=== PATIENT | female | born 1970 | race Caucasian/White ===

== ENCOUNTER 2017-02-20 10:33 | Day surgery (SDC) | payer OTHER ==
[2013-06-23 19:23] VITALS: BP 132/76
[~2017-02-20 10:33] MED LIST: Kenalog-40 IM ONE; Lactated Ringers 1,000 ML IV ONE; Sensorcaine 0.25% 10 ML IJ ONE
[2017-02-20] MEDS ORDERED: DIPRIVAN 200 MG/20 ML IV ONE (11:00)
--- NOTE | 2017-02-20 17:19 | XRAY ---
12 seconds fluoroscopy time in surgery for right side L2-5 MBB.
--- NOTE | 2017-02-22 02:38 | XRAY ---
Indication: Right L2-L5 MBB. Intraoperative fluoroscopy was provided for 12 seconds. Single digital spot image submitted for interpretation demonstrates 4 posterior spinal needles with the tips projected over the expected course of the right L2-L5 nerve roots. Correlate with intraoperative findings/report.
== END 2017-02-20 12:55 | disposition home or self-care (01) ==
LOC: SDC-PAIN 10:33
PROVIDERS: ATTEND Pain Medicine Interventional Pain Medicine
DX: M54.16 Radiculopathy, lumbar region (principal); M48.06 Spinal stenosis, lumbar region; M54.5 Low back pain; M47.816 Spondylosis without myelopathy or radiculopathy, lumbar region
CPT/HCPCS: 64493; 64494; 64495; 72020; 77003; J2704; J3301

== ENCOUNTER 2017-07-09 04:28 | Observation (INO) | payer OTHER ==
[2017-07-09] MEDS ORDERED: GI COCKTAIL 45 ML (Maalox/Lidocaine) PO ONE (04:55)
[2017-07-09] MEDS ORDERED: Sodium Chloride 0.9% 1000 ML 1,000 ML IV STA (04:56)
[2017-07-09] MEDS ORDERED: Phenergan 25 MG INJ IV ONE (04:56)
[2017-07-09] MEDS ORDERED: Hydromorphone 1 mg/ml Ampule IV ONE ×2 (04:56→07:17)
--- NOTE | 2017-07-09 04:59 | ERPHSYRPT ---
- History of Present Illness Time Seen by Provider: 07/09/17 04:49 Historian: patient Exam Limitations: no limitations Patient Subjective Stated Complaint: Pt sts vomiting x 8 since 0130 after waking up with feeling of burning from her stomach up into her throat. Reports history of GERD. Takes Zantac for this. Took "a couple" Zantac at time of wake up. Reports no diarrhea. Reports no recent sick contacts, everyone in the house at the same food and no one else is sick. Triage Nursing Assessment: Pt alert, oriented, answers all questions appropriately. Skin pink, warm, dry. Resps non-labored. Pt ambulatory from wheelchair to bed, steady gait noted. Pt writhing in bed holding abd. Physician History: FOR ABOUT THE PAST 4.5 HOURS PT HAS HAD VOMITING X8 WITHOUT BLOOD, DIFFUSE ABDOMINAL PAIN/BURNING AND DIAPHORESIS. LAST BM WAS THIS AM & WNL. PT DENIES CHEST PAIN, SHORTNESS OF AIR, FEVER. Allergies/Adverse Reactions: Latex, Natural Rubber Allergy (Intermediate, Verified 07/09/17 04:41) Hives sulfamethoxazole [From Bactrim] Allergy (Mild, Verified 07/09/17 04:41) Hives trimethoprim [From Bactrim] Allergy (Mild, Verified 07/09/17 04:41) Hives tramadol Allergy (Verified 07/09/17 04:41) Hives Home Medications: Omeprazole [Prilosec] 40 mg PO DAILY 09/11/14 [History] Ranitidine HCl [Zantac] 150 mg PO DAILY PRN PRN 12/23/15 [History] Escitalopram Oxalate 10 mg [Lexapro 10 MG] 10 mg PO HS 04/25/16 [History] Hydrocodone Bit/Acetaminophen [[place] 7.5-325 Tablet] 1 each PO BIDPRN PRN [History] Baclofen 20 mg PO TID 03/12/17 [History] Diclofenac Sodium 50 mg [Voltaren 50 mg] 50 mg PO TID 03/12/17 [History] Hx Tetanus, Diphtheria Vaccination/Date Given: Yes (2012) Hx Influenza Vaccination/Date Given: No Hx Pneumococcal Vaccination/Date Given: No Immunizations Up to Date: Yes - Review of Systems Constitutional: No Fever Respiratory: No Dyspnea Cardiac: No Chest Pain Abdominal/Gastrointestinal: Abdominal Pain, Vomiting, No Diarrhea Endocrine: Excessive Sweating All Other Systems: Reviewed and Negative - Past Medical History Pertinent Past Medical History: Yes Neurological History: No Pertinent History ENT History: No Pertinent History Cardiac History: No Pertinent History Respiratory History: No Pertinent History Endocrine Medical History: No Pertinent History Musculoskeletal History: Degenerative Disk Disease, Osteoarthritis GI Medical History: Colitis History: No Pertinent History Psycho-Social History: No Pertinent History Female Reproductive Disorders: No Pertinent History Other Medical History: HYSTERECTOMY 2004. HX OF EPIDURAL LOW BACK (? PER PT S1 ) 09/2015 HAD RELIEF FOR 10 MONTHS. WENT BACK TO PAIN MANAGEMENT FOR ANOTHER BUT WAS TOLD NEEDED TO DO COURSE OF THERAPY BEFORE INSURANCE WOULD APPROVE. HAS HAD THERAPY IN THE PAST INCLUDING GENERAL CONDITIONING, CORE STRENGTHENING, AND ELECTRICAL STIMULATION. HAS NOT CONTINUED EXERCISES. - Past Surgical History Past Surgical History: Yes Neuro Surgical History: No Pertinent History Cardiac: No Pertinent History Respiratory: No Pertinent History Gastrointestinal: No Pertinent History Genitourinary: No Pertinent History Musculoskeletal: No Pertinent History Female Surgical History: Hysterectomy, Tubal Ligation - Social History Smoking Status: Current every day smoker How long have you smoked: 15 Exposure to second hand smoke: No Drug Use: none Patient Lives Alone: No - Female History Hx Now: No - Nursing Vital Signs Nursing Vital Signs: Initial Vital Signs Temperature 97.8 F 07/09/17 04:30 Pulse Rate 69 07/09/17 04:30 Respiratory Rate 16 07/09/17 04:30 Blood Pressure 109/72 07/09/17 04:30 O2 Sat by Pulse Oximetry 100 07/09/17 04:30 Pain Scale Pain Intensity 10 - Physical Exam General Appearance: alert Eye Exam: PERRL/EOMI Ears, Nose, Throat Exam: TMs normal, pharynx normal, moist mucous membranes Neck Exam: normal inspection Respiratory Exam: lungs clear Cardiovascular Exam: normal heart sounds Gastrointestinal/Abdomen Exam: soft, normal bowel sounds, tenderness (MILD EPIGASTRIC TENDERNESS) Back Exam: normal range of motion Extremity Exam: normal inspection, No pedal edema Neurologic Exam: alert, cooperative Skin Exam: warm, dry SpO2 Interpretation: normal SpO2: 100 Oxygen Delivery: Room Air - Course Nursing assessment & vital signs reviewed: Yes - CT Exams Abdomen/Pelvis CT Interpretation: Tele-radiologist Report (CHOLELITHIASIS WITH DISTENDED GALLBLADDER AND MINIMAL STRANDY FLUID BETWEEN THE LIVER AND GALLBLADDER NECK RAISING THE POSSIBILITY OF CHOLECYSTITIS.) Ordered Tests: Active Orders 24 hr Category Date Time Status Clean Catch Urine Specimen STAT Care 07/09/17 04:56 Active IV Insertion STAT Care 07/09/17 04:56 Active ABDOMEN AND PELVIS W/0 CONTRAS [CT] Stat Exams 07/09/17 04:56 Taken AMYLASE Stat Lab 07/09/17 05:06 Completed CBC W DIFF Stat Lab 07/09/17 05:06 Completed CMP Stat Lab 07/09/17 05:06 Completed HCG QUALITATIVE,SERUM Stat Lab 07/09/17 05:06 Completed LIPASE Stat Lab 07/09/17 05:06 Completed UA W/RFX UR CULTURE Stat Lab 07/09/17 04:56 Ordered Urine Triage Profile Stat Lab 07/09/17 04:56 Ordered Medication Summary Discontinued Medications Generic Name Dose Route Start Last Admin Trade Name Freq PRN Reason Stop Dose Admin Al Hydrox/Mg Hydrox/Simethicone Confirm 07/09/17 05:01 Maalox Es 30 Ml Unit Dose Administered 07/09/17 05:02 Dose 30 ml .ROUTE .STK-MED ONE Hydromorphone HCl 1 mg 07/09/17 04:56 07/09/17 05:04 Hydromorphone 1 Mg/Ml Ampule IV 07/09/17 04:57 1 mg STAT ONE Administration Hydromorphone HCl Confirm 07/09/17 05:01 Hydromorphone 1 Mg/Ml Ampule Administered 07/09/17 05:02 Dose 1 mg .ROUTE .STK-MED ONE Sodium Chloride 1,000 mls @ 999 mls/hr 07/09/17 04:56 07/09/17 05:04 Sodium Chloride 0.9% 1000 Ml IV 07/09/17 05:56 999 mls/hr .Q1H1M STA Administration Sodium Chloride Confirm 07/09/17 05:01 Sodium Chloride 0.9% 1000 Ml Administered 07/09/17 05:02 Dose 1,000 mls @ ud .ROUTE .STK-MED ONE Lidocaine HCl Confirm 07/09/17 05:01 Xylocaine Hcl Viscous * Administered 07/09/17 05:02 Dose 15 ml .ROUTE .STK-MED ONE Magnesium Hydroxide 45 ml 07/09/17 04:55 07/09/17 05:13 Gi Cocktail 45 Ml (Maalox/Lidocaine) PO 07/09/17 04:56 45 ml STAT ONE Administration Promethazine HCl 12.5 mg 07/09/17 04:56 07/09/17 05:04 Phenergan 25 Mg Inj IV 07/09/17 04:57 12.5 mg STAT ONE Administration Promethazine HCl Confirm 07/09/17 05:00 Phenergan 25 Mg Inj Administered 07/09/17 05:01 Dose 25 mg .ROUTE .STK-MED ONE Lab/Rad Data: Laboratory Result Diagrams 07/09/17 05:06 07/09/17 05:06 Laboratory Results 07/09/17 07/09/17 07/09/17 Range/Units 05:06 05:06 05:06 WBC 14.7 H (4.0-10.5) K/mm3 RBC 4.99 (4.1-5.4) M/mm3 Hgb 14.5 (12.0-16.0) gm/dl Hct 43.7 (35-47) % MCV 87.6 (78-100) fl MCH 29.1 (26-32) pg MCHC 33.2 (32-36) g/dl RDW 13.5 (11.5-14.0) % Plt Count 339 (150-450) K/mm3 MPV 10.3 H (6-9.5) fl Gran % 69.4 H (36.0-66.0) % Lymphocytes % 23.1 L (24.0-44.0) % Monocytes % 6.0 (0.0-12.0) % Eosinophils % 1.3 (0.00-5.0) % Basophils % 0.2 (0.0-0.4) % Basophils # 0.03 (0-0.4) Sodium 142 (136-145) mEq/L Potassium 3.3 L (3.5-5.1) mEq/L Chloride 105 (98-107) mEq/L Carbon Dioxide 25.3 (21-32) mEq/L Anion Gap 14.5 (5-15) MEQ/L BUN 16 (9-20) mg/dL Creatinine 0.96 (0.55-1.30) mg/dl Estimated GFR > 60 ML/MIN Glucose 183 H (70-110) MG/DL Calcium 9.3 (8.5-10.1) mg/dL Total Bilirubin 0.30 (0.2-1.0) mg/dL AST 10 L (15-37) U/L ALT 16 (12-78) U/L Alkaline Phosphatase 106 (46-116) U/L Serum Total Protein 8.1 (6.4-8.2) gm/dL Albumin 4.0 (3.4-5.0) g/dL Amylase 58 (25-115) U/L Lipase 150 (73-393) U/L Serum , Qual NEGATIVE (Negative) - Progress Discussed with : Марина (WILL CONSULT - 0712), Damon (OBS - 0714) - Departure Time of Disposition: 07:15 Departure Disposition: Observation Clinical Impression: CHOLELITHIASIS, ABDOMINAL PAIN, ARTHRITIS Condition: Stable Critical Care Time: No Referrals: SHALONDA DUMONT, P[employer] TEACHER [Primary Care Provider] -
[2017-07-09] MEDS ORDERED: Phenergan 25 MG INJ ONE (05:00)
[2017-07-09] MEDS ORDERED: MAALOX ES 30 ML UNIT DOSE ONE (05:01)
[2017-07-09] MEDS ORDERED: XYLOCAINE HCl Viscous ONE (05:01)
[2017-07-09] MEDS ORDERED: Sodium Chloride 0.9% 1000 ML 1,000 ML ONE (05:01)
[2017-07-09] MEDS ORDERED: Hydromorphone 1 mg/ml Ampule ONE ×2 (05:01→07:38)
[2017-07-09 05:09] LABS: BASOPHIL % 0.2 % (0.0-0.4); Eosinophil % 1.3 % (0.00-5.0); Granulocytes % 69.4 % (36.0-66.0); Lymphocytes % 23.1 % (24.0-44.0); Mean Cell Volume 87.6 fl (78-100); Mean Corpuscular Hemoglobin 29.1 pg (26-32); Mean Platelet Volume 10.3 fl (6-9.5); Platelet Count 339 K/mm3 (150-450); Red Blood Count 4.99 M/mm3 (4.1-5.4); Red Cell Distribution Width 13.5 % (11.5-14.0); White Blood Count 14.7 K/mm3 (4.0-10.5)
[2017-07-09 05:28] LABS: ALKALINE PHOSPHATASE 106 U/L (46-116); ANION GAP 14.5 MEQ/L (5-15); BLOOD UREA NITROGEN 16 mg/dL (9-20); CHLORIDE 105 mEq/L (98-107); Carbon Dioxide 25.3 mEq/L (21-32); Glucose 183 MG/DL (70-110); LIPASE 150 U/L (73-393); Potassium 3.3 mEq/L (3.5-5.1); SGOT/AST 10 U/L (15-37); SGPT/ALT 16 U/L (12-78); SODIUM 142 mEq/L (136-145); Total Protein 8.1 gm/dL (6.4-8.2)
[2017-07-09] MEDS ORDERED: Zosyn 3.375GM/100 Ml D5W 3.375 GM/100 ML IVPB IV STA (07:16)
[2017-07-09] MEDS ORDERED: POTASSIUM CHLORIDE 20 mEq IN WATER 100ML 20 MEQ/100 ML BAG IV ONE ×2 (07:16→08:55)
[2017-07-09] MEDS ORDERED: Zofran 4 MG/2 ML VIAL IV ONE ×2 (07:17→18:14)
[2017-07-09] MEDS ORDERED: Zofran 4 MG/2 ML VIAL ONE (07:38)
[2017-07-09] MEDS ORDERED: Zosyn 3.375GM/100 Ml D5W 3.375 GM/100 ML IVPB IV ONE (07:38)
[2017-07-09 08:17] LABS: Bilirubin NEGATIVE (NEGATIVE); Blood TRACE NON-HEM Ery/ul (0-5); COMPLETE URINE MICROSCOPIC? YES; Collection Type CATH; Glucose NEGATIVE (NEGATIVE); Leukocyte Esterase NEGATIVE (NEGATIVE)
[2017-07-09 08:19] LABS: Epithelial Cells RARE /HPF (FEW); Mucus SLIGHT /HPF (NEGATIVE); WBC 0-2 /HPF (0-5)
[2017-07-09 08:20] LABS: ADD URINE CULTURE? NO (NO); Bacteria RARE /HPF (NEGATIVE)
[2017-07-09] MEDS ORDERED: POTASSIUM CHLORIDE 20 mEq IN WATER 100ML 100 ML IV ONE (08:37)
[2017-07-09] MEDS ORDERED: Zofran 4 MG/2 ML VIAL IV PRN (08:55)
[2017-07-09] MEDS ORDERED: Phenergan 25 MG INJ IV PRN (08:55)
[2017-07-09] MEDS ORDERED: Sodium Chloride 0.9% 1000 ML 1,000 ML IV SCH (08:55)
--- NOTE | 2017-07-09 09:03 | XRAY ---
Indication: Abdomen pain. Gastric reflux. Multiple contiguous axial images obtained through the abdomen and pelvis without contrast as ordered. Comparison: April 03, 2013. Lung bases demonstrates mild bibasilar dependent atelectasis with stable right base calcified granuloma. No infiltrate or effusion. Heart is not enlarged. No hiatal hernia. Noncontrasted bowel loops appear nonobstructed. Normal appendectomy. No free fluid/air. Gallbladder appears distended with now a few intraluminal cholesterol gallstones and minimal stranding possibly cholecystitis. No abnormal biliary distention. Again previous hysterectomy. Remaining liver, pancreas, spleen, adrenal glands, kidneys, ureters, bladder, and aorta appear unremarkable for noncontrast exam. Osseous structures intact again with mild degenerative changes. Stable left L5 spondylolysis with mild grade 1 spondylolisthesis. Impression: 1. Abnormal gallbladder distention with cholesterol gallstones and minimal stranding. Rule out cholecystitis. Gallbladder sonogram may yield further information. 2. Stable L5 spondylolysis with grade 1 spondylolisthesis. Comment: Preliminary interpretation was made by [facility]. No discrepancy. CT DI 22.63
[2017-07-09 09:14] LABS: INR 0.99 (0.8-3.0)
[2017-07-09 09:16] LABS: PTT 29.8 SECONDS (25.3-37.0)
--- NOTE | 2017-07-09 09:56 | XRAY ---
Indication: Pain. Two-dimensional right upper quadrant abdominal sonogram performed. Comparison: April 03, 2013. Gallbladder moderately distended with now several intraluminal gallstones in the dependent portion, largest 2 cm. Borderline gallbladder wall thickening measuring 2.7 mm. No pericholecystic fluid. Common bile duct measures 4.9 mm. No intrahepatic biliary distention. Remaining visualized portions of the liver, pancreas, and right kidney appear sonographically unremarkable. Right kidney measures 12.12 cm. No ascites. Impression: Distended gallbladder with gallstones and borderline wall thickening. Rule out chronic cholecystitis.
[2017-07-09] MEDS: DILAUDID 2 MG INJECTION IV PRN ×2 (10:27→14:36)
[2017-07-09] MEDS: PROTONIX 40 MG IV IV SCH (10:33)
[2017-07-09] MEDS: Zosyn 3.375GM/100 Ml D5W 3.375 GM/100 ML IVPB IV SCH ×2 (12:52→17:20)
[2017-07-09] MEDS ORDERED: Lactated Ringers 1,000 ML IV ONE (13:24)
[2017-07-09] MEDS ORDERED: Sensorcaine 0.25% 10 ML ONE (13:24)
[2017-07-09] MEDS: Lactated Ringers 1,000 ML IV SCH (13:58)
--- NOTE | 2017-07-09 16:13 | PCM.HP ---
History of Present Illness - Chief Complaint Chief Complaint: abd pain, cholelithiasis History of Present Illness: is a 47 year old female who started having abd pain and vomiting at 1 :30 am. SHe had epigastric and RUQ burning pain, >10/10, radiating to the back. Vomited multiple times. No fever. Last meal 6 pm yesterday. Found to have cholecystitis in the ER on CT scan. Admitted for surgical consult. On IV zosyn (WBC elevated to 14,700). - Review of Systems Ears, Nose, & Throat: Nose Congestion Respiratory: Cough, Short Of Breath Cardiac: No Chest Pain Abdominal/Gastrointestinal: Abdominal Pain, Nausea, Vomiting Musculoskeletal: Back Pain (chronic) Psychological: Depression (treated with SSRI, pt denies current sx), No Anxiety , No Suicidal Ideations Medications & Allergies Home Medications: Home Medication List Ranitidine HCl [Zantac] 150 mg PO DAILY PRN PRN 12/23/15 [History Confirmed ] Escitalopram Oxalate 10 mg [Lexapro 10 MG] 10 mg PO HS 04/25/16 [History Confirmed 07/09/17] Baclofen 20 mg PO TID 03/12/17 [History Confirmed 07/09/17] Allergies/Adverse Reactions: Allergies Allergy/AdvReac Type Severity Reaction Status Date / Time Latex, Natural Rubber Allergy Intermediate Hives Verified 07/09/17 04:41 sulfamethoxazole Allergy Mild Hives Verified 07/09/17 04:41 [From Bactrim] trimethoprim [From Bactrim] Allergy Mild Hives Verified 07/09/17 04:41 tramadol Allergy Hives Verified 07/09/17 04:41 - Past Medical History Past Medical History: Yes Neurological History: No Pertinent History ENT History: No Pertinent History Cardiac History: No Pertinent History Respiratory History: No Pertinent History Endocrine Medical History: No Pertinent History Musculoskelatal History: Degenerative Disk Disease, Osteoarthritis GI Medical History: Colitis History: No Pertinent History Pyscho-Social History: No Pertinent History Reproductive Disorders: No Pertinent History Comment: HYSTERECTOMY 2004. HX OF EPIDURAL LOW BACK (? PER PT S1) 09/2015 HAD RELIEF FOR 10 MONTHS. WENT BACK TO PAIN MANAGEMENT FOR ANOTHER BUT WAS TOLD NEEDED TO DO COURSE OF THERAPY BEFORE INSURANCE WOULD APPROVE. HAS HAD THERAPY IN THE PAST INCLUDING GENERAL CONDITIONING, CORE STRENGTHENING, AND ELECTRICAL STIMULATION. HAS NOT CONTINUED EXERCISES. - Female History Hx Last Menstrual Period: hyst Are you now?: No - Past Surgical History Past Surgical History: Yes Neuro Surgical History: No Pertinent History Cardiac History: No Pertinent History Respiratory Surgery: No Pertinent History GI Surgical History: No Pertinent History Genitourinary Surgical Hx: No Pertinent History Musculskeletal Surgical Hx: No Pertinent History Female Surgical History: Hysterectomy, Tubal Ligation - Social History Smoking Status: Current every day smoker How long have you smoked: 15 Exposure to second hand smoke: No Alcohol: None Drug Use: none - Physical Exam Vital Signs: Vital Signs - 24 hr Temp Pulse Resp BP Pulse Ox 07/09/17 15:49 98.7 F 78 18 123/71 95 07/09/17 11:50 99.1 F 72 18 118/73 94 L 07/09/17 11:18 99.1 F 72 18 118/73 94 L 07/09/17 09:28 98.3 F 69 20 120/73 97 07/09/17 08:26 98.3 F 68 16 152/76 98 07/09/17 07:47 90 18 120/75 96 07/09/17 07:15 100 07/09/17 06:40 86 16 117/72 98 07/09/17 05:44 88 16 128/76 98 07/09/17 04:30 97.8 F 69 16 109/72 100 General Appearance: no apparent distress, alert Neurologic Exam: oriented x 3, cooperative Eye Exam: eyes nml inspection Ears, Nose, Throat Exam: moist mucous membranes Neck Exam: normal inspection, non-tender, No lymphadenopathy Respiratory Exam: normal breath sounds, lungs clear, No crackles/rales, No rhonchi, No wheezing Cardiovascular Exam: regular rate/rhythm, normal heart sounds, No murmur Gastrointestinal/Abdomen Exam: soft, tenderness (epigastrum, RUQ), guarding, rebound, other (hypoactive), No distention, No mass Back Exam: normal inspection Results - Labs Lab/Micro Results: Lab Results-Last 24 Hours 07/09/17 Range/Units 15:01 Potassium 4.3 (3.5-5.1) mEq/L Assessment/Plan (1) Cholecystitis Current Visit: Yes Status: Acute Assessment & Plan: Admitted for surgical consult, thank you. NPO currently. Will restart her meds postoperatively. Code(s): K81.9 - CHOLECYSTITIS, UNSPECIFIED (2) Depression Current Visit: Yes Status: Acute Qualifiers: Depression Type: unspecified Qualified Code(s): F32.9 - Major depressive disorder, single episode, unspecified Assessment & Plan: stable on SSRI. Code(s): F32.9 - MAJOR DEPRESSIVE DISORDER, SINGLE EPISODE, UNSPECIFIED
[2017-07-09] MEDS ORDERED: Quelicin Fliptop 200 MG/10 ML IV ONE (18:14)
[2017-07-09] MEDS ORDERED: Zemuron 100 MG/10 ML IV ONE (18:14)
[2017-07-09] MEDS ORDERED: DIPRIVAN 200 MG/20 ML IV ONE (18:14)
[2017-07-09] MEDS ORDERED: Decadron 4 MG INJ IV ONE (18:14)
[2017-07-09] MEDS ORDERED: BRIDION 200MG/2ML IV ONE (18:14)
[2017-07-09] MEDS ORDERED: TORAdol 30 mg Injection IV ONE (18:14)
[2017-07-09] MEDS ORDERED: SUBLIMAZE 250 MCG/5 ML IV ONE (18:14)
[2017-07-09] MEDS ORDERED: Versed 2 MG/2 ML Injection IV ONE (18:14)
[2017-07-09] MEDS ORDERED: DEMEROL 50 MG ONE (19:03)
[2017-07-09] MEDS ORDERED: MORPHINE SULFATE 4 MG INJ IV PRN (19:56)
[2017-07-09] MEDS ORDERED: Lactated Ringers 1,000 ML IV SCH (20:00)
[2017-07-09] MEDS ORDERED: Nicoderm CQ 21 MG TOP SCH (22:15)
[2017-07-09] MEDS: NORCO 5/325 MG PO PRN (22:40)
[2017-07-10] MEDS: Zosyn 3.375GM/100 Ml D5W 3.375 GM/100 ML IVPB IV SCH ×3 (00:03→12:23)
[2017-07-10] MEDS: NORCO 5/325 MG PO PRN ×4 (04:23→17:57)
[2017-07-10] MEDS: Lactated Ringers 1,000 ML IV SCH (04:24)
[2017-07-10 05:53] LABS: BASOPHIL % 0.1 % (0.0-0.4); Granulocytes % 84.9 % (36.0-66.0); Mean Cell Volume 87.2 fl (78-100); Mean Corpuscular Hemoglobin 29.1 pg (26-32); Platelet Count 262 K/mm3 (150-450); Red Blood Count 4.53 M/mm3 (4.1-5.4); Red Cell Distribution Width 13.3 % (11.5-14.0); White Blood Count 16.9 K/mm3 (4.0-10.5)
[2017-07-10 06:10] LABS: ALBUMIN 3.1 g/dL (3.4-5.0); ALKALINE PHOSPHATASE 91 U/L (46-116); ANION GAP 11.4 MEQ/L (5-15); BLOOD UREA NITROGEN 11 mg/dL (9-20); CHLORIDE 105 mEq/L (98-107); Carbon Dioxide 26.2 mEq/L (21-32); Glucose 147 MG/DL (70-110); LIPASE 92 U/L (73-393); Potassium 4.2 mEq/L (3.5-5.1); SGOT/AST 39 U/L (15-37); SGPT/ALT 58 U/L (12-78); SODIUM 138 mEq/L (136-145); Total Protein 7.1 gm/dL (6.4-8.2)
--- NOTE | 2017-07-10 07:46 | OP ---
SURGERY DATE/TIME: 07/09/2017 1737 PREOPERATIVE DIAGNOSIS: Symptomatic cholelithiasis, acute exacerbation chronic cholecystitis. POSTOPERATIVE DIAGNOSIS: Symptomatic cholelithiasis, acute exacerbation chronic cholecystitis extensive severe cholecystitis. PROCEDURE: Laparoscopic near total cholecystectomy, difficult. SURGEON: Dr. Mateo Perales. ANESTHESIA: General. ESTIMATED BLOOD LOSS: Minimal. INDICATIONS: As noted above. Risks and benefits explained in detail but not limited to and consent obtained. DESCRIPTION OF PROCEDURE AND FINDINGS: The patient was taken to the OR. General anesthesia was induced. Abdomen prepped and draped in the usual sterile fashion. After official time out and no disagreement with planned procedure, a transverse incision made at the supraumbilical area. Fascia grasped and pulled upward. Veress needle inserted and tested with saline. Pneumoperitoneum accomplished insufflating opening pressure of 0-15. An 11 mm bladeless port and camera were inserted without difficulty. Two - 5 mm right upper quadrant ports and a 5 mm epigastric port was placed initially. The gallbladder extensive omental adhesions was quite distended and required making a secondary stab wound in the right upper quadrant. Veress needle and 50 cc syringe aspirating a good 40 cc of hydrops and bile allowing the gallbladder to be grasped. It required extensive laparoscopic lysis of adhesions, extensive omental adhesions dissecting from posterior-lateral to anterior fashion. It had severe cholecystitis. Dissection carried posterior-lateral to anterior fashion. The patient had large stone wedged down in the infundibulum all the way down to the edge of the common bile duct. Because of this the stone was able to be mobilized back up into the gallbladder. The stone had been wedged down there. It was quite patulous in this area with extensive inflammatory reaction. With slow and careful dissection layer by layer the infundibular area was slowly and carefully well skeletonized until the critical view was obtained both anteriorly and posteriorly. Given this extensive inflammatory reaction it was felt that the gallbladder should be taken right at the infundibulum as any further dissection would immediately risk narrowing the common duct given the extensive concrete inflammatory reaction. It was felt that even opening the patient would not create any better situation and it was felt it would be baseless and to go ahead and do this near total cholecystectomy taking this gallbladder right at the actual infundibula adjacent to the common duct area. This critical view was obtained both anterior and posteriorly. A 12 port was then placed in the epigastrium. The EndoGIA stapler carefully placed across there and fired smoothly with good seal noted on the staple line with no sign of any bile leakage. The main cystic artery advanced isolated directly on the gallbladder wall clipped x3 and divided. The gallbladder is slowly and carefully dissected free from its concrete inflammatory reaction this took quite some time, all this extra dissection and changing ports out added extra 45 minutes on the procedure time. The gallbladder is slowly and carefully dissected free from its dense almost concrete attachments to the liver bed staying directly on the gallbladder wall clipping additional oozing side branches off the cystic artery cystic veins as necessary directly on the gallbladder wall. Just prior to releasing the final attachments to the anterior edge of the liver, the liver bed re-inspected. Staple line intact on the infundibular stump. No signs of any leakage. Clips were noted in place on cystic artery stump. No signs of any active bleeding. The gallbladder was released from its final attachments to the anterior edge of the liver the liver and placed in a Pleatman sac and pulled out the umbilical port decompressing it of bile and retrieving the multiple moderately large stones with the Momence clamp allowing the gallbladder in Pleatman sac to be pulled free and passed off. The port was replaced. Copious amount of irrigation accomplished lateral to the liver and subhepatic space irrigating until clear. The liver bed re-inspected. Clips noted to be in place in cystic artery stumps. Staple line intact on the infundibular stump. Given the extensive inflammatory reaction it was felt that temporary YOLY drain would be beneficial and placed in the subhepatic space out through a lateral port. The incision secured with PDS suture and placed to bulb suction. At this point the epigastrium umbilical 10, 11 and 12 ports were closed with puncture closure device with #1 Vicryl under direct vision of the camera. Pneumoperitoneum decompressed. The wound was irrigated out. Skin incision closed with 4-0 Vicryl. 0.25% Marcaine local injected along the skin incision fascial defect. The patient tolerated the procedure well. There were no immediate complications. There was no family available to discuss the findings with out in the waiting area. If they have any questions I can be paged later. He was transferred to the recovery room in stable condition. There were no immediate complications. It was a very difficult dissection given the severe cholecystitis requiring a near total cholecystectomy.
--- NOTE | 2017-07-10 07:58 | CONS ---
CONSULT DATE: 07/09/2017 HISTORY: The patient is a 47 year-old white female who since about 0130 hours this morning had some upper abdominal right upper quadrant pain associated with some nausea and vomiting. She failed to improve. She presented to the emergency department and eventually had a CT scan show cholelithiasis on preliminary report, borderline wall thickening and question whether she had cholecystitis. She is not improving. It was felt that she needed admission. Otherwise no free air or other issues noted. Her international normalized ratio was normal. HCG was negative. White blood cell count was 14.7, hemoglobin 14.5, PLT 239,000. Drug screen showed some THC otherwise no other narcotics. Lipase was normal. Liver function test unremarkable. PAST MEDICAL HISTORY: As mentioned above. She has degenerative disc disease, osteoarthritis. She had some colitis in the past. Chronic low back pain and she has been seeing pain management. PAST SURGICAL HISTORY: Hysterectomy in the past. She denied any prior abdominal surgeries. She did have an epidural injection in her back in the past according to the patient. HOME MEDICATIONS: Omeprazole, ranitidine, citalopram, hydrocodone, Baclofen, diclofenac for some back problems. ALLERGIES: LATEX, SULFA, BACTRIM, TRAMADOL. FAMILY HISTORY: Negative in regards to this specific problem. SOCIAL HISTORY: No alcohol abuse. She is an everyday smoker. REVIEW OF SYSTEMS: Twelve systems reviewed per admission assessment pertinent for as noted above. PHYSICAL EXAMINATION: Afebrile, vital signs stable. GENERAL: No acute distress. HEENT: Sclera nonicteric. NECK: No JVD. CHEST: Equal excursion, nonlabored breathing. CVS: Regular rate and rhythm. ABDOMEN: Soft, mild tenderness epigastrium area and right upper quadrant. No rebound. EXTREMITIES: No significant edema. NEURO: Alert, moving extremities symmetrically. No gross motor deficits noted. IMPRESSION: Symptomatic cholelithiasis acute exacerbation of acute cholecystitis. I feel the patient will benefit from cholecystectomy. Risks and benefits explained in detail but not limited to bleeding or infection, risk of trocar injury or hernia, small risk bowel, bladder or blood vessel injury, small risk of bile leak, bile duct injury, retained stone or sludge possibly requiring further procedure either open or ERCP, general risk of anesthesia, deep venous thrombosis, pulmonary embolism, pneumonia, perioperative risk of aches, pain, bloating, constipation and/or loose stools possibly chronic in nature, possibility that the procedure may not improve her symptoms, possibility of needing open procedure, possibly need other work up or studies. She understands and agrees with the planned procedure will proceed with laparoscopic cholecystectomy when OR time available.
--- NOTE | 2017-07-10 08:11 | PCM.NOTE ---
Date and Time: 07/10/17807 Subjective Assessment: Had laparoscopic cholecystectomy last night. Feeling "sore" this morning but pain is better. - Review of Systems Constitutional: No Fever Abdominal/Gastrointestinal: Abdominal Pain Objective Exam General Appearance: no apparent distress, alert Neurologic Exam: oriented x 3, cooperative Skin Exam: normal color, warm, dry Respiratory Exam: normal breath sounds, lungs clear, No crackles/rales, No rhonchi, No wheezing Cardiovascular Exam: regular rate/rhythm, normal heart sounds, No murmur Gastrointestinal/Abdomen Exam: soft, tenderness, other (YOLY drain present with serosanguinous drainage. hypoactive bowel sounds) OBJECTIVE DATA Vital Signs: Vital Signs - 24 hr Temp Pulse Resp BP Pulse Ox 07/10/17 07:29 95 07/10/17 07:20 98.3 F 69 18 109/63 94 L 07/10/17 04:00 97.4 F 64 14 112/66 96 07/09/17 23:55 97.4 F 72 16 111/71 96 07/09/17 22:55 67 116/72 95 07/09/17 21:55 98.3 F 75 14 116/71 96 07/09/17 20:55 99.0 F 77 16 115/74 93 L 07/09/17 20:27 94 L 07/09/17 20:25 98.7 F 71 15 118/76 96 07/09/17 19:55 98.8 F 76 16 116/69 93 L 07/09/17 19:40 98.3 F 77 16 116/72 92 L 07/09/17 15:49 98.7 F 78 18 123/71 95 07/09/17 11:50 99.1 F 72 18 118/73 94 L 07/09/17 11:18 99.1 F 72 18 118/73 94 L 07/09/17 09:28 98.3 F 69 20 120/73 97 07/09/17 08:26 98.3 F 68 16 152/76 98 Oxygen-Last 24 hours O2 Percentage 2 Liters = 28% O2 Percentage 2 Liters = 28% Oxygen Flowrate (L/min)-RT 2 Oxygen Flowrate (L/min)-RT 2 Pain Assessment - Last Documented Pain Intensity 0 Pain Scale Used 0-10 Pain Scale Intake and Output: Intake & Output 10/1507/08/17 07/09/17 07/10/17 11:59 11:59 11:59 11:59 Intake Total 400 Output Total 1200 Balance -800 Weight 83.915 kg 84.504 kg Lab Results: Lab Results-Last 24 Hours 07/09/17 07/10/17 07/10/17 Range/Units 15:01 05:08 05:08 WBC 16.9 H (4.0-10.5) K/mm3 RBC 4.53 (4.1-5.4) M/mm3 Hgb 13.2 (12.0-16.0) gm/dl Hct 39.5 (35-47) % MCV 87.2 (78-100) fl MCH 29.1 (26-32) pg MCHC 33.4 (32-36) g/dl RDW 13.3 (11.5-14.0) % Plt Count 262 (150-450) K/mm3 MPV 11.0 H (6-9.5) fl Gran % 84.9 H (36.0-66.0) % Lymphocytes % 11.0 L (24.0-44.0) % Monocytes % 4.0 (0.0-12.0) % Eosinophils % 0.0 (0.00-5.0) % Basophils % 0.1 (0.0-0.4) % Basophils # 0.02 (0-0.4) Sodium 138 (136-145) mEq/L Potassium 4.3 4.2 (3.5-5.1) mEq/L Chloride 105 (98-107) mEq/L Carbon Dioxide 26.2 (21-32) mEq/L Anion Gap 11.4 (5-15) MEQ/L BUN 11 (9-20) mg/dL Creatinine 0.76 (0.55-1.30) mg/dl Estimated GFR > 60 ML/MIN Glucose 147 H (70-110) MG/DL Calcium 8.9 (8.5-10.1) mg/dL Total Bilirubin 0.60 (0.2-1.0) mg/dL AST 39 H (15-37) U/L ALT 58 (12-78) U/L Alkaline Phosphatase 91 (46-116) U/L Serum Total Protein 7.1 (6.4-8.2) gm/dL Albumin 3.1 L (3.4-5.0) g/dL Lipase 92 (73-393) U/L Assessment/Plan (1) S/P cholecystectomy Current Visit: Yes Status: Acute Assessment & Plan: POD #1. Has YOLY drain in place. Code(s): Z90.49 - ACQUIRED ABSENCE OF OTHER SPECIFIED PARTS OF DIGESTIVE TRACT (2) Leukocytosis Current Visit: Yes Status: Acute Assessment & Plan: Increased WBC from yesterday. Betsey will stay overnight on IV antibiotics and earliest discharge would be tomorrow, if cleared by surgery. Code(s): D72.829 - ELEVATED WHITE BLOOD CELL COUNT, UNSPECIFIED (3) Depression Current Visit: Yes Status: Acute Qualifiers: Depression Type: unspecified Qualified Code(s): F32.9 - Major depressive disorder, single episode, unspecified Code(s): F32.9 - MAJOR DEPRESSIVE DISORDER, SINGLE EPISODE, UNSPECIFIED
[2017-07-10] MEDS: PROTONIX 40 MG IV IV SCH (09:08)
[2017-07-10 16:10] VITALS: BP 109/65; PULSE 72; O2SAT 94
--- NOTE | 2017-07-10 16:14 | PCM.DS ---
Discharge Summary Date of Admission: 07/09/17 08:53 Admitting Physician: LIBBY LEE Primary Care Provider: SHALONDA DUMONT Allergies Allergies Latex, Natural Rubber Allergy (Intermediate, Verified 07/09/17 04:41) Hives sulfamethoxazole [From Bactrim] Allergy (Mild, Verified 07/09/17 04:41) Hives trimethoprim [From Bactrim] Allergy (Mild, Verified 07/09/17 04:41) Hives tramadol Allergy (Verified 07/09/17 04:41) Hives morphine Adverse Reaction (Verified 07/09/17 20:29) Itching Hospital Summary - Hospital Course Hospital Course: Pt admitted with abd pain and vomiting, found to have cholelithiasis and cholecystits and had surgery yesterday, thank you. Has YOLY drain but tolerating po well and pain is controlled with norco. - Vitals & Intake/Output Vital Signs: Vital Signs Temperature 98.4 F 07/10/17 16:00 Pulse Rate 72 07/10/17 16:00 Respiratory Rate 16 07/10/17 16:00 Blood Pressure 109/65 07/10/17 16:00 O2 Sat by Pulse Oximetry 94 L 07/10/17 16:00 Oxygen-Last Documented O2 Percentage 2 Liters = 28% Intake & Output: Intake & Output 07/08/17 07/09/17 07/10/17 07/11/17 11:59 11:59 11:59 11:59 Intake Total 400 Output Total 1200 900 Balance -800 -900 Weight 83.915 kg 84.504 kg - Lab Result Diagrams: 07/10/17 05:08 07/10/17 05:08 Lab Results-Last 24 Hrs: Lab Results-Last 24 Hours 07/10/17 07/10/17 Range/Units 05:08 05:08 WBC 16.9 H (4.0-10.5) K/mm3 RBC 4.53 (4.1-5.4) M/mm3 Hgb 13.2 (12.0-16.0) gm/dl Hct 39.5 (35-47) % MCV 87.2 (78-100) fl MCH 29.1 (26-32) pg MCHC 33.4 (32-36) g/dl RDW 13.3 (11.5-14.0) % Plt Count 262 (150-450) K/mm3 MPV 11.0 H (6-9.5) fl Gran % 84.9 H (36.0-66.0) % Lymphocytes % 11.0 L (24.0-44.0) % Monocytes % 4.0 (0.0-12.0) % Eosinophils % 0.0 (0.00-5.0) % Basophils % 0.1 (0.0-0.4) % Basophils # 0.02 (0-0.4) Sodium 138 (136-145) mEq/L Potassium 4.2 (3.5-5.1) mEq/L Chloride 105 (98-107) mEq/L Carbon Dioxide 26.2 (21-32) mEq/L Anion Gap 11.4 (5-15) MEQ/L BUN 11 (9-20) mg/dL Creatinine 0.76 (0.55-1.30) mg/dl Estimated GFR > 60 ML/MIN Glucose 147 H (70-110) MG/DL Calcium 8.9 (8.5-10.1) mg/dL Total Bilirubin 0.60 (0.2-1.0) mg/dL AST 39 H (15-37) U/L ALT 58 (12-78) U/L Alkaline Phosphatase 91 (46-116) U/L Serum Total Protein 7.1 (6.4-8.2) gm/dL Albumin 3.1 L (3.4-5.0) g/dL Lipase 92 (73-393) U/L - Procedures and Test Procedures and Tests throughout Hospitalization: Therapy Orders & Screens 07/09/17 09:43 Smoking Cessation Education ONCE Comment: Diagnosis: abd pain, cholelithiasis Smoking Status: Current every day smoker How long have you smoked: 15 Have you smoked in the past 12 months: Yes Approximately how many cigarettes per day: 1ppd Do you dip or chew tobacco: No If,Former Smoker,when did you quit: 09/0307/09/17 20:25 Oxygen NASAL CANNULA 2 lpm Comment: Diagnosis: abd pain, cholelithiasis Discharge Exam General Appearance: no apparent distress, alert Neurologic Exam: oriented x 3, cooperative Skin Exam: normal color, warm, dry Respiratory Exam: normal breath sounds, lungs clear, No crackles/rales, No rhonchi, No wheezing Cardiovascular Exam: regular rate/rhythm, normal heart sounds, No murmur Gastrointestinal/Abdomen Exam: soft, normal bowel sounds, other (surgical wounds c/d/i. YOLY drain present with serosanguinous drainage.) Final Diagnosis/Problem List - Final Discharge Diagnosis/Problem (1) S/P cholecystectomy Current Visit: Yes Status: Acute Assessment & Plan: Doing great. Home today. (2) Leukocytosis Current Visit: Yes Status: Acute Assessment & Plan: Likely due to vomiting then surgery, surgeon aware. (3) Depression Current Visit: Yes Status: Chronic Assessment & Plan: stable - Discharge Disposition: Home, Self-Care Condition: Stable Prescriptions: Continue Ranitidine HCl [Zantac] 150 mg PO DAILY PRN PRN PRN Reason: Stomach Upset Escitalopram Oxalate 10 mg [Lexapro 10 MG] 10 mg PO HS Baclofen 20 mg PO TID Follow up with: HALIE LINDER [COURTESY STAFF] - 07/22/17 8:00 am ([facility]) SHALONDA DUMONT NP [Primary Care Provider] -
== END 2017-07-10 18:15 | disposition home or self-care (01) ==
LOC: ED 04:28 → MED SURG 08:53
PROVIDERS: ADMIT Family Medicine; ATTEND Family Medicine
PROC: 0FT44ZZ Resection of Gallbladder, Percutaneous Endoscopic Approach (ICD-10-PCS; principal; 2017-07-09)
DX: K81.9 Cholecystitis, unspecified (principal); F32.9 Major depressive disorder, single episode, unspecified
CPT/HCPCS: 00790; 36000; 36415; 74176; 76705; 80053; 80307; 81000; 82150; 83690; 84132; 84703; 85025; 85610; 85730; 87040; 88304; 94760; 96360; 96365; 96367; 96374; 96375; 99285; G0378; J0330; J1100; J1170; J1885; J2175; J2250; J2405; J2543; J2550; J2704; J3010; J3480; P9612; A9270-GY

== ENCOUNTER 2018-06-25 13:18 | Emergency (ER) | payer OTHER ==
--- NOTE | 2018-06-25 14:24 | ERPHSYRPT ---
- History of Present Illness Time Seen by Provider: 06/25/18 14:15 Source: patient Exam Limitations: no limitations Patient Subjective Stated Complaint: pt states she has 4 herniated disc in neck and for about a week now she has had neck pain and stiffness, she has tried motrin,heat, bio freeze Triage Nursing Assessment: pt alert, walked in, resp easy, gaurding neck Physician History: The patient is a 48-year-old female complaining of left sided neck muscle and left sided back muscle spasm and pain for about one week. She had this problem chronically for several years but it had resolved last year. She thinks she may have slept wrong or moves wrong causing it to flareup again. She has taken baclofen before with good result. She has tried Tylenol and ibuprofen without relief. She was at work today but was sent home. Her past medical history is significant for herniated disks in her cervical spine. Timing/Duration: week(s) (1), gradual onset Severity: moderate Modifying Factors: Improves With: movement Associated Symptoms: denies symptoms, No headaches Allergies/Adverse Reactions: Latex, Natural Rubber Allergy (Intermediate, Verified 07/09/17 04:41) Hives sulfamethoxazole [From Bactrim] Allergy (Mild, Verified 07/09/17 04:41) Hives trimethoprim [From Bactrim] Allergy (Mild, Verified 07/09/17 04:41) Hives codeine Allergy (Verified 06/25/18 13:31) tramadol Allergy (Verified 07/09/17 04:41) Hives morphine Adverse Reaction (Verified 07/09/17 20:29) Itching Hx Tetanus, Diphtheria Vaccination/Date Given: Yes (2012) Hx Influenza Vaccination/Date Given: No Hx Pneumococcal Vaccination/Date Given: No Immunizations Up to Date: Yes - Review of Systems Constitutional: No Fever, No Chills Eyes: No Symptoms Ears, Nose, & Throat: No Symptoms Respiratory: No Cough, No Dyspnea Cardiac: No Chest Pain, No Edema, No Syncope Abdominal/Gastrointestinal: No Abdominal Pain, No Nausea, No Vomiting, No Diarrhea Genitourinary Symptoms: No Dysuria Musculoskeletal: Back Pain, Neck Pain, Myalgias Skin: No Rash Neurological: No Dizziness, No Focal Weakness, No Sensory Changes Psychological: No Symptoms Endocrine: No Symptoms Hematologic/Lymphatic: No Symptoms Immunological/Allergic: No Symptoms All Other Systems: Reviewed and Negative - Past Medical History Pertinent Past Medical History: Yes Neurological History: No Pertinent History ENT History: No Pertinent History Cardiac History: No Pertinent History Respiratory History: No Pertinent History Endocrine Medical History: No Pertinent History Musculoskeletal History: Degenerative Disk Disease, Osteoarthritis GI Medical History: Colitis History: No Pertinent History Psycho-Social History: No Pertinent History Female Reproductive Disorders: No Pertinent History Other Medical History: HYSTERECTOMY 2004. HX OF EPIDURAL LOW BACK (? PER PT S1 ) 09/2015 HAD RELIEF FOR 10 MONTHS. WENT BACK TO PAIN MANAGEMENT FOR ANOTHER BUT WAS TOLD NEEDED TO DO COURSE OF THERAPY BEFORE INSURANCE WOULD APPROVE. HAS HAD THERAPY IN THE PAST INCLUDING GENERAL CONDITIONING, CORE STRENGTHENING, AND ELECTRICAL STIMULATION. HAS NOT CONTINUED EXERCISES. - Past Surgical History Past Surgical History: Yes Neuro Surgical History: No Pertinent History Cardiac: No Pertinent History Respiratory: No Pertinent History Gastrointestinal: No Pertinent History Genitourinary: No Pertinent History Musculoskeletal: No Pertinent History Female Surgical History: Hysterectomy, Tubal Ligation - Social History Smoking Status: Current every day smoker How long have you smoked: 15 Exposure to second hand smoke: Yes Drug Use: none Patient Lives Alone: No - Female History Hx Last Menstrual Period: hyster Hx Now: No - Nursing Vital Signs Nursing Vital Signs: Initial Vital Signs Temperature 97.2 F 06/25/18 13:24 Pulse Rate 90 06/25/18 13:24 Respiratory Rate 16 06/25/18 13:24 Blood Pressure 135/110 06/25/18 13:24 O2 Sat by Pulse Oximetry 96 06/25/18 13:24 Pain Scale Pain Intensity 8 - Physical Exam General Appearance: no apparent distress, alert Eye Exam: PERRL/EOMI, eyes nml inspection Ears, Nose, Throat Exam: normal ENT inspection, TMs normal, pharynx normal, moist mucous membranes Neck Exam: supple, limited range of motion, other (spasm of muscles to left neck ) Respiratory Exam: normal breath sounds, lungs clear, No respiratory distress Cardiovascular Exam: regular rate/rhythm, murmur Gastrointestinal/Abdomen Exam: soft, normal bowel sounds, No tenderness, No mass Pelvic Exam: not done Rectal Exam: not done Back Exam: muscle spasm (left trapezius) Extremity Exam: normal inspection, normal range of motion, pelvis stable Neurologic Exam: alert, oriented x 3, cooperative, normal mood/affect, nml cerebellar function, nml station & gait, sensation nml, No motor deficits Skin Exam: normal color, warm, dry, No rash Lymphatic Exam: No adenopathy SpO2 Interpretation: normal SpO2: 96 Oxygen Delivery: Room Air - Radiology Exams C-Spine X-ray Interpretation: Reviewed by me, Teleradiologist Report (per Dr Bright), Negative, No Fracture, No Subluxation Ordered Tests: Active Orders 24 hr Category Date Time Status CERVICAL SPINE (2 OR 3 VIEW) Stat Exams 06/25/18 14:29 Completed Medication Summary Discontinued Medications Generic Name Dose Route Start Last Admin Trade Name Parviz PRN Reason Stop Dose Admin Ketorolac Tromethamine 60 mg 06/25/18 14:28 06/25/18 14:50 Toradol 30 Mg Injection IM 06/25/18 14:29 60 mg STAT ONE Administration Ketorolac Tromethamine Confirm 06/25/18 14:37 Toradol 30 Mg Injection Administered 06/25/18 14:38 Dose 60 mg .ROUTE .STK-MED ONE - Progress Progress: improved Counseled pt/family regarding: diagnosis, rad results - Departure Time of Disposition: 15:19 Departure Disposition: Home Clinical Impression: Neck muscle spasm Condition: Stable Critical Care Time: No Referrals: SHALONDA DUMONT NP [Primary Care Provider] - Additional Instructions: You have a spasm of the muscles of the left side of your neck and left shoulder. You were given Toradol 60 mg by IM in the ER. Take baclofen 10 mg every 8 hours as needed for pain. Take Tylenol and ibuprofen as needed. Follow -up with your primary medical doctor as needed. Prescriptions: Baclofen 10 mg PO TID #12 tablet
[2018-06-25] MEDS ORDERED: TORAdol 30 mg Injection IM ONE (14:28)
[2018-06-25] MEDS ORDERED: TORAdol 30 mg Injection ONE (14:37)
--- NOTE | 2018-06-25 15:06 | XRAY ---
Indication: Muscle spasms one week. Comparison: CT cervical spine September 25, 2013. 3 views of the cervical spine again demonstrates C5-C6 degenerative endplate spurring and lesser degree C3-C4 level. Also stable cervical lordotic straightening, positional versus paraspinal spasm. No new/acute bony, articular, or soft tissue abnormalities.
[2018-06-25 15:35] VITALS: BP 100/80; PULSE 68; O2SAT 97
== END 2018-06-25 15:35 | disposition home or self-care (01) ==
LOC: ED 13:18
DX: M62.830 Muscle spasm of back (principal); M54.2 Cervicalgia; M62.838 Other muscle spasm; M54.9 Dorsalgia, unspecified
CPT/HCPCS: 72040; 96372; 99284; J1885

== ENCOUNTER 2018-11-03 12:15 | Emergency (ER) | payer OTHER ==
--- NOTE | 2018-11-03 13:30 | ERPHSYRPT ---
- History of Present Illness Time Seen by Provider: 11/03/18 13:25 Source: patient Exam Limitations: no limitations Patient Subjective Stated Complaint: pt here for a fall today, she states seh slipped on a towel and fell landing on bottom, she co pain to buttock, mid back and rgith side of neck that radiates to shoulder Triage Nursing Assessment: pt alert, resp easy, skin w/d/p, no edema, no bruising or abrasions noted Physician History: The patient is a 48-year-old female complaining of falling early this morning while trying to take her dog outside. The patient fell onto her buttocks on the floor and then fell back striking her head on the floor. She complains of pain in her buttocks and tailbone area, right shoulder and neck pain, and left mid back pain. He was not knocked out. She went to work but was told to be seen and evaluated. She denies numbness or tingling. Occurred: this morning Reason for Fall: slipped, fell from standing pos Injuries/Pain Location: head, upper extremity, back, pelvis Loss of Consciousness: no loss of consciousness Quality: aching Severity of Pain-Max: moderate Severity of Pain-Current: moderate Modifying Factors: Improves With: nothing Associated Symptoms (Fall): back pain Allergies/Adverse Reactions: Latex, Natural Rubber Allergy (Intermediate, Verified 11/03/18 12:25) Hives sulfamethoxazole [From Bactrim] Allergy (Mild, Verified 11/03/18 12:25) Hives trimethoprim [From Bactrim] Allergy (Mild, Verified 11/03/18 12:25) Hives codeine Allergy (Verified 11/03/18 12:25) tramadol Allergy (Verified 11/03/18 12:25) Hives morphine Adverse Reaction (Verified 11/03/18 12:25) Itching Hx Tetanus, Diphtheria Vaccination/Date Given: Yes (2012) Hx Influenza Vaccination/Date Given: Yes Hx Pneumococcal Vaccination/Date Given: No Immunizations Up to Date: Yes - Review of Systems Constitutional: No Fever, No Chills Eyes: No Symptoms Ears, Nose, & Throat: No Symptoms Respiratory: No Cough, No Dyspnea Cardiac: No Chest Pain, No Edema, No Syncope Abdominal/Gastrointestinal: No Abdominal Pain, No Nausea, No Vomiting, No Diarrhea Genitourinary Symptoms: No Dysuria Musculoskeletal: Back Pain, Fall, Injury, Myalgias Skin: No Rash Neurological: No Dizziness, No Focal Weakness, No Sensory Changes Psychological: No Symptoms Endocrine: No Symptoms Hematologic/Lymphatic: No Symptoms Immunological/Allergic: No Symptoms All Other Systems: Reviewed and Negative - Past Medical History Pertinent Past Medical History: Yes Neurological History: No Pertinent History ENT History: No Pertinent History Cardiac History: No Pertinent History Respiratory History: No Pertinent History Endocrine Medical History: No Pertinent History Musculoskeletal History: Degenerative Disk Disease, Osteoarthritis GI Medical History: Colitis History: No Pertinent History Psycho-Social History: No Pertinent History Female Reproductive Disorders: No Pertinent History Other Medical History: HYSTERECTOMY 2004. HX OF EPIDURAL LOW BACK (? PER PT S1 ) 09/2015 HAD RELIEF FOR 10 MONTHS. WENT BACK TO PAIN MANAGEMENT FOR ANOTHER BUT WAS TOLD NEEDED TO DO COURSE OF THERAPY BEFORE INSURANCE WOULD APPROVE. HAS HAD THERAPY IN THE PAST INCLUDING GENERAL CONDITIONING, CORE STRENGTHENING, AND ELECTRICAL STIMULATION. HAS NOT CONTINUED EXERCISES. - Past Surgical History Past Surgical History: Yes Neuro Surgical History: No Pertinent History Cardiac: No Pertinent History Respiratory: No Pertinent History Gastrointestinal: Cholecystectomy Genitourinary: No Pertinent History Musculoskeletal: No Pertinent History Female Surgical History: Hysterectomy, Tubal Ligation - Social History Smoking Status: Current every day smoker How long have you smoked: 15 Exposure to second hand smoke: Yes Drug Use: marijuana Patient Lives Alone: No - Female History Hx Last Menstrual Period: hyster Hx Now: No - Nursing Vital Signs Nursing Vital Signs: Initial Vital Signs Temperature 97 F 11/03/18 12:26 Pulse Rate 94 H 11/03/18 12:26 Respiratory Rate 18 11/03/18 12:26 Blood Pressure 142/92 11/03/18 12:26 O2 Sat by Pulse Oximetry 99 11/03/18 12:26 Pain Scale Pain Intensity 4 - [place] Coma Score Best Eye Response ([place]): (4) open spontaneously Best Verbal Response ([place]): (5) oriented Best Motor Response ([place]): (6) obeys commands [place] Total: 15 - Physical Exam General Appearance: no apparent distress, alert Head Injury: no evidence of injury Eye Exam: PERRL/EOMI ENT Exam: airway nml Neck Exam: tenderness (right lateral inferior muscle spasm and tenderness) Respiratory/Chest Exam: normal breath sounds, No chest tenderness, No respiratory distress Cardiovascular Exam: normal heart sounds, regular rate/rhythm Gastrointestinal Exam: soft, No tenderness, No distention, No guarding, No ecchymosis Rectal Exam: not done Back Exam: muscle spasm (Examination the back reveals muscle spasm and tenderness of the right superior trapezius muscle. There is also spasm and tenderness of the left thoracic paraspinous muscles.), other (tenderness to palpation of coccyx) Extremity Exam: normal inspection, normal range of motion, pelvis stable, No deformities Neurologic Exam: alert, oriented x 3, cooperative, sensation nml, No motor deficits Skin Exam: normal color, warm, dry SpO2 Interpretation: normal SpO2: 99 O2 Delivery: Room Air - Radiology Exams Other X-ray Interpretation: Reviewed by me, Teleradiologist Report (per Dr Bright), Negative, No Fracture (sacrum and coccyx) Ordered Tests: Active Orders 24 hr Category Date Time Status SACRUM AND COCCYX Stat Exams 11/03/18 13:53 Completed Medication Summary Discontinued Medications Generic Name Dose Route Start Last Admin Trade Name Freq PRN Reason Stop Dose Admin Ketorolac Tromethamine 60 mg 11/03/18 13:32 11/03/18 13:42 Toradol 30 Mg Injection IM 11/03/18 13:33 60 mg STAT ONE Administration Ketorolac Tromethamine Confirm 11/03/18 13:38 Toradol 30 Mg Injection Administered 11/03/18 13:39 Dose 60 mg .ROUTE .STK-MED ONE - Progress Progress: improved Counseled pt/family regarding: rad results - Departure Time of Disposition: 14:42 Departure Disposition: Home Clinical Impression: Muscle spasm, Coccyx contusion Condition: Stable Critical Care Time: No Referrals: SHALONDA DUMONT NP [Primary Care Provider] - Additional Instructions: You had a fall this morning that caused muscle spasms in your right shoulder and left side of your mid back. You also have a contusion on your tailbone. Take Flexeril 10 mg every 8 hours as needed. You were given Toradol 60 mg by IM in the ER. You were given tomorrow off from work. Follow-up with your primary medical doctor as needed. Prescriptions: Cyclobenzaprine HCl 10 mg PO Q8H PRN PRN #10 tablet PRN Reason: Pain
[2018-11-03] MEDS ORDERED: TORAdol 30 mg Injection IM ONE (13:32)
[2018-11-03] MEDS ORDERED: TORAdol 30 mg Injection ONE (13:38)
--- NOTE | 2018-11-03 14:09 | XRAY ---
Indication: Pain following fall. 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 No other bony, articular, or soft tissue abnormalities.
[2018-11-03 14:41] VITALS: BP 104/67; PULSE 78
[2018-11-03 14:47] VITALS: O2SAT 99
== END 2018-11-03 14:58 | disposition home or self-care (01) ==
LOC: ED 12:15
DX: M62.838 Other muscle spasm (principal); S30.0XXA Contusion of lower back and pelvis, initial encounter; W01.198A Fall on same level from slipping, tripping and stumbling with subsequent striking against other object, initial encounter; Y93.K1 Activity, walking an animal; Y92.9 Unspecified place or not applicable; M19.90 Unspecified osteoarthritis, unspecified site
CPT/HCPCS: 72220; 96372; 99284; J1885

== ENCOUNTER 2019-04-07 19:58 | Emergency (ER) | payer OTHER ==
[2019-04-07] MEDS ORDERED: solu-MEDROL 125 MG IM ONE (20:39)
[2019-04-07] MEDS ORDERED: solu-MEDROL 125 MG ONE (20:43)
--- NOTE | 2019-04-07 20:48 | ERPHSYRPT ---
- History of Present Illness Time Seen by Provider: 04/07/19 20:33 Source: patient Exam Limitations: no limitations Patient Subjective Stated Complaint: pt states she has problems with l4 and l5 and has been having a flare upw ith her back pain since yesterday. Triage Nursing Assessment: pt alert and oriented, answers questions approp. pt ambulatory with slow gait. Physician History: 48-year-old white female with history of chronic low back pain arrives with complaint of worsening of her low back pain since yesterday she states is located in the mid low lumbar region she states it radiates down her right leg. Patient has a chronic history of this she had an MRI of the back which was performed in February of this year he was remarkable for multilevel degenerative disc disease greater at L5-S1, there was negative disc herniation or spinal canal stenosis, there was Multivite level vertebral hemangiomas Schmorl's nodes. Patient is not having any loss of sensation she is able to move all extremities. Past medical history includes asthma, bronchitis, arthritis, Past surgical history includes hysterectomy and tubal ligation Inspect his queried the patient received Winfield 10/325 #28 on March 05, 2019 Patient states she is on Baclofen. Patient states that she was told she needed to see a pain internal control consultant. Timing/Duration: other (chronic, worse since yesterday) Severity: moderate Modifying Factors: Improves With: movement Associated Symptoms: No nausea, No vomiting, No abdominal pain, No shortness of breath, No heartburn, No diaphoresis, No cough, No chills, No chest pain, No fever, No headaches, No loss of appetite, No malaise, No rash, No syncope, No seizure, No weakness Allergies/Adverse Reactions: Latex, Natural Rubber Allergy (Intermediate, Verified 04/07/19 20:13) Hives sulfamethoxazole [From Bactrim] Allergy (Mild, Verified 04/07/19 20:13) Hives trimethoprim [From Bactrim] Allergy (Mild, Verified 04/07/19 20:13) Hives codeine Allergy (Verified 04/07/19 20:13) tramadol Allergy (Verified 04/07/19 20:13) Hives morphine Adverse Reaction (Verified 04/07/19 20:13) Itching Home Medications: Baclofen 10 mg [Lioresal 10 mg] 10 mg PO BID 04/07/19 [History] Omeprazole 20 mg PO DAILY 04/07/19 [History] Hx Tetanus, Diphtheria Vaccination/Date Given: Yes Hx Influenza Vaccination/Date Given: Yes Hx Pneumococcal Vaccination/Date Given: No Immunizations Up to Date: Yes - Review of Systems Constitutional: No Fever, No Chills Eyes: No Symptoms Ears, Nose, & Throat: No Symptoms Respiratory: No Cough, No Dyspnea Cardiac: No Chest Pain, No Edema, No Syncope Abdominal/Gastrointestinal: No Abdominal Pain, No Nausea, No Vomiting, No Diarrhea Genitourinary Symptoms: No Dysuria Musculoskeletal: Back Pain Skin: No Rash Neurological: No Dizziness, No Focal Weakness, No Sensory Changes Psychological: No Symptoms Endocrine: No Symptoms All Other Systems: Reviewed and Negative - Past Medical History Pertinent Past Medical History: Yes Neurological History: No Pertinent History ENT History: No Pertinent History Cardiac History: No Pertinent History Respiratory History: Asthma, Bronchitis Endocrine Medical History: No Pertinent History Musculoskeletal History: Arthritis GI Medical History: Colitis History: No Pertinent History Psycho-Social History: No Pertinent History Female Reproductive Disorders: No Pertinent History Other Medical History: HYSTERECTOMY 2004. HX OF EPIDURAL LOW BACK (? PER PT S1 ) 09/2015 HAD RELIEF FOR 10 MONTHS. APPROVE. HAS HAD THERAPY IN THE PAST INCLUDING GENERAL CONDITIONING, CORE STRENGTHENING, AND ELECTRICAL STIMULATION. HAS NOT CONTINUED EXERCISES. - Past Surgical History Past Surgical History: Yes Neuro Surgical History: No Pertinent History Cardiac: No Pertinent History Respiratory: No Pertinent History Gastrointestinal: Cholecystectomy Genitourinary: No Pertinent History Musculoskeletal: No Pertinent History Female Surgical History: Hysterectomy, Tubal Ligation - Social History Smoking Status: Current every day smoker How long have you smoked: 15 Exposure to second hand smoke: Yes Drug Use: marijuana Patient Lives Alone: No - Female History Hx Last Menstrual Period: hyster 2006 Hx Now: No - Nursing Vital Signs Nursing Vital Signs: Initial Vital Signs Temperature 97.8 F 04/07/19 20:04 Pulse Rate 92 H 04/07/19 20:04 Respiratory Rate 98 H 04/07/19 20:04 Blood Pressure 154/99 04/07/19 20:04 O2 Sat by Pulse Oximetry 98 04/07/19 20:04 Pain Scale Pain Intensity [Lower Back] 9 Pain Intensity 9 - Physical Exam General Appearance: mild distress, alert Eye Exam: PERRL/EOMI, eyes nml inspection Ears, Nose, Throat Exam: normal ENT inspection, TMs normal, pharynx normal, moist mucous membranes Neck Exam: normal inspection, non-tender, supple, full range of motion Respiratory Exam: normal breath sounds, lungs clear, No respiratory distress Cardiovascular Exam: regular rate/rhythm, normal heart sounds, normal peripheral pulses, capillary refill <2 sec Gastrointestinal/Abdomen Exam: soft, normal bowel sounds, No tenderness, No mass Back Exam: other (back is tender with palpation midline low lumbar region. 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, normal mood/affect, nml cerebellar function, nml station & gait, sensation nml, No motor deficits Skin Exam: normal color, warm, dry, No rash SpO2 Interpretation: normal (98%) SpO2: 98 - Course Nursing assessment & vital signs reviewed: Yes Ordered Tests: Medication Summary Discontinued Medications Generic Name Dose Route Start Last Admin Trade Name Parviz PRN Reason Stop Dose Admin Methylprednisolone Sodium Succinate 125 mg 04/07/19 20:39 04/07/19 20:46 Solu-Medrol 125 Mg IM 04/07/19 20:40 125 mg STAT ONE Administration Methylprednisolone Sodium Succinate Confirm 04/07/19 20:43 Solu-Medrol 125 Mg Administered 04/07/19 20:44 Dose 125 mg .ROUTE .STK-MED ONE - Progress Progress: improved Progress Note: 04/07/19 20:45 48-year-old white female with history of degenerative disc disease with had a recent MRI which shows multilevel degenerative disc disease L4-S1 she has negative disc herniation or spinal canal stenosis. She does have multilevel vertebral hemangiomas Schmorl's nodes. Patient with increased back pain since yesterday no apparent injury. Patient is tender with palpation low lumbar region midline. She states she has pain radiating down her right leg she is not having urinary symptoms she is able to sit with her hips flexed to 90 and both legs extended she has range of motion to all extremities, she has no demonstratable neurologic deficits at this time. Patient has been seen by her family doctor has been told that she will need to see a pain internal control consultant she states she has had epidurals in the past with good improvement. Will go ahead and give patient Solu-Medrol 125 mg IM will write for tapering prednisone. Will write for Winfield 5/325 #10 one orally every 6 hours as needed for pain. As the pharmacies are closed will go ahead and give patient to with his take-home Will give patient work slip for tomorrow. Patient is advised to followup with her family - Departure Departure Disposition: Home Clinical Impression: Back pain Qualifiers: Back pain location: low back pain Chronicity: unspecified Back pain laterality : midline Sciatica presence: with sciatica Sciatica laterality: sciatica of right side Qualified Code(s): M54.41 - Lumbago with sciatica, right side Condition: Fair Critical Care Time: No Referrals: LUKE VARGHESE [employer] [Primary Care Provider] - Additional Instructions: Return home rest. Winfield and prednisone as prescribed. Followup with your family . Return for acute distress or for severe symptoms. Prescriptions: Hydrocodone/APAP 5-325 Tab^^^ [Winfield 5-325 Tablet^^^] 1 tab PO Q6HPRN PRN #10 tablet MDD 6 PRN Reason: back pain
[2019-04-07] MEDS ORDERED: NORCO 5/325 MG PO ONE (20:55)
[2019-04-07] MEDS ORDERED: NORCO 5/325 MG ONE (20:56)
[2019-04-07 21:07] VITALS: BP 137/83; PULSE 70; O2SAT 96
== END 2019-04-07 21:07 | disposition home or self-care (01) ==
LOC: ED 19:58
DX: M54.41 Lumbago with sciatica, right side (principal)
CPT/HCPCS: 96372; 99283; J2930; A9270-GY

== ENCOUNTER 2019-05-23 19:54 | Emergency (ER) | payer OTHER ==
[2019-05-23] MEDS ORDERED: Sodium Chloride 0.9% 1000 ML 1,000 ML IV STA ×2 (20:08→22:20)
[2019-05-23] MEDS ORDERED: Zofran 4 MG/2 ML VIAL IV ONE (20:08)
--- NOTE | 2019-05-23 20:08 | ERPHSYRPT ---
- History of Present Illness Time Seen by Provider: 05/23/19 20:04 Historian: patient, family Exam Limitations: no limitations Physician History: pt had sudden onset of chest pain sharp and increased with breathing no cough of fever - has hx of back spasms and though it might be like that but baclofen did not help - no hx CAD - no fever reported. no abd pain N or V. Timing/Duration: today Activities at Onset: none Quality: sharpness, stabbing Location: central, back Chest Pain Radiation: back Severity of Pain-Max: moderate Severity of Pain-Current: moderate Modifying Factors: Improves With: breathing Associated Symptoms: shortness of breath, hurts to breathe Prior Chest Pain/Cardiac Workup: no prior chest pain, no prior cardiac workup Nitro Today/Relief: 0.4 mg x 1, provided by ED, no relief Aspirin Treatment Today: 325 mg x 1, provided by ED Allergies/Adverse Reactions: Latex, Natural Rubber Allergy (Intermediate, Verified 04/07/19 20:13) Hives sulfamethoxazole [From Bactrim] Allergy (Mild, Verified 04/07/19 20:13) Hives trimethoprim [From Bactrim] Allergy (Mild, Verified 04/07/19 20:13) Hives codeine Allergy (Verified 04/07/19 20:13) tramadol Allergy (Verified 04/07/19 20:13) Hives morphine Adverse Reaction (Verified 04/07/19 20:13) Itching Home Medications: Baclofen 10 mg [Lioresal 10 mg] 10 mg PO BID 04/07/19 [History] Omeprazole 20 mg PO DAILY 04/07/19 [History] Hx Tetanus, Diphtheria Vaccination/Date Given: Yes Hx Influenza Vaccination/Date Given: Yes Hx Pneumococcal Vaccination/Date Given: No - Review of Systems Constitutional: No Fever, No Chills Eyes: No Symptoms Ears, Nose, & Throat: No Symptoms Respiratory: Dyspnea, No Cough, No Stridor, No Wheezing Cardiac: Chest Pain, No Edema, No Syncope Abdominal/Gastrointestinal: No Abdominal Pain, No Nausea, No Vomiting, No Diarrhea Genitourinary Symptoms: No Dysuria Musculoskeletal: No Back Pain, No Neck Pain Skin: No Rash Neurological: No Dizziness, No Focal Weakness, No Sensory Changes Psychological: No Symptoms Endocrine: No Symptoms All Other Systems: Reviewed and Negative - Past Medical History Pertinent Past Medical History: Yes Neurological History: No Pertinent History ENT History: No Pertinent History Cardiac History: No Pertinent History Respiratory History: Asthma, Bronchitis Endocrine Medical History: No Pertinent History Musculoskeletal History: Arthritis GI Medical History: Colitis History: No Pertinent History Psycho-Social History: No Pertinent History Female Reproductive Disorders: No Pertinent History Other Medical History: HYSTERECTOMY 2004. HX OF EPIDURAL LOW BACK (? PER PT S1 ) 09/2015 HAD RELIEF FOR 10 MONTHS. APPROVE. HAS HAD THERAPY IN THE PAST INCLUDING GENERAL CONDITIONING, CORE STRENGTHENING, AND ELECTRICAL STIMULATION. HAS NOT CONTINUED EXERCISES. - Past Surgical History Past Surgical History: Yes Neuro Surgical History: No Pertinent History Cardiac: No Pertinent History Respiratory: No Pertinent History Gastrointestinal: Cholecystectomy Genitourinary: No Pertinent History Musculoskeletal: No Pertinent History Female Surgical History: Hysterectomy, Tubal Ligation - Social History Smoking Status: Current every day smoker How long have you smoked: 15 Exposure to second hand smoke: Yes Drug Use: marijuana Patient Lives Alone: No - Nursing Vital Signs Nursing Vital Signs: Initial Vital Signs Pulse Rate 96 H 05/23/19 19:58 Respiratory Rate 20 05/23/19 19:58 Blood Pressure 160/126 05/23/19 19:58 O2 Sat by Pulse Oximetry 100 05/23/19 19:58 Pain Scale Pain Intensity 0 - Physical Exam General Appearance: no apparent distress, alert Eye Exam: PERRL/EOMI, eyes nml inspection Ears, Nose, Throat Exam: normal ENT inspection, moist mucous membranes Neck Exam: normal inspection, non-tender, supple, full range of motion Respiratory Exam: normal breath sounds, lungs clear, No respiratory distress Cardiovascular Exam: regular rate/rhythm, normal heart sounds Gastrointestinal/Abdomen Exam: soft, No tenderness, No mass Back Exam: normal inspection, No CVA tenderness, No vertebral tenderness Extremity Exam: normal inspection, normal range of motion Neurologic Exam: alert, oriented x 3, cooperative, normal mood/affect, sensation nml, No motor deficits Skin Exam: normal color, warm, dry - Course Nursing assessment & vital signs reviewed: Yes EKG Interpreted by Me: Sinus Tach, NORMAL AXIS, Non-specific ST Changes - Radiology Exams Chest X-ray Interpretation: Reviewed by me, Other (peribronchial thickening/infiltrate ) Ordered Tests: Active Orders 24 hr Category Date Time Status EKG-ER Only STAT Care 05/23/19 20:08 Active IV Insertion STAT Care 05/23/19 20:08 Active CHEST 1 VIEW (PORTABLE) Stat Exams 05/23/19 20:09 Taken AMYLASE Stat Lab 05/23/19 20:37 Completed CBC W DIFF Stat Lab 05/23/19 20:37 Completed CK-Creatinine Phosphokinase Routine Lab 05/23/19 23:15 Completed CMP Stat Lab 05/23/19 20:37 Completed D-DIMER QUANTITATION Stat Lab 05/23/19 20:37 Completed LIPASE Stat Lab 05/23/19 20:37 Completed Lactic Acid Stat Lab 05/23/19 20:30 Completed Lactic Acid Stat Lab 05/23/19 23:06 Completed TROPONIN Q3H Lab 05/23/19 20:37 Completed TROPONIN Q3H Lab 05/23/19 23:15 Completed TROPONIN Q3H Lab 05/24/19 02:15 Ordered TROPONIN Q3H Lab 05/24/19 05:15 Ordered TROPONIN Q3H Lab 05/24/19 08:15 Ordered UA W/RFX UR CULTURE Stat Lab 05/23/19 20:58 Completed Medication Summary Discontinued Medications Generic Name Dose Route Start Last Admin Trade Name Parviz PRN Reason Stop Dose Admin Sodium Chloride 1,000 mls @ 999 mls/hr 05/23/19 20:08 05/23/19 21:14 Sodium Chloride 0.9% 1000 Ml IV 05/23/19 21:08 Infused .Q1H1M STA Infusion Sodium Chloride Confirm 05/23/19 20:12 Sodium Chloride 0.9% 1000 Ml Administered 05/23/19 20:13 Dose 1,000 mls @ ud .ROUTE .STK-MED ONE Sodium Chloride 1,000 mls @ 999 mls/hr 05/23/19 22:20 05/23/19 23:25 Sodium Chloride 0.9% 1000 Ml IV 05/23/19 23:20 Infused .Q1H1M STA Infusion Ceftriaxone Sodium/Dextrose 1 g in 50 mls @ 100 mls/hr 05/23/19 22:22 22:59 Rocephin 1 Gm-D5w 50 Ml Bag IV 05/23/19 22:51 Infused STAT ONE Infusion Sodium Chloride Confirm 05/23/19 22:23 Sodium Chloride 0.9% 1000 Ml Administered 05/23/19 22:24 Dose 1,000 mls @ ud .ROUTE .STK-MED ONE Ceftriaxone Sodium/Dextrose Confirm 05/23/19 22:23 Rocephin 1 Gm-D5w 50 Ml Bag Administered 05/23/19 22:24 Dose 1 g in 50 mls @ ud IV .STK-MED ONE Lorazepam 1 mg 05/23/19 20:12 05/23/19 20:30 Ativan 1 Mg PO 05/23/19 20:13 1 mg STAT ONE Administration Lorazepam Confirm 05/23/19 20:22 Ativan 1 Mg Administered 05/23/19 20:23 Dose 1 mg .ROUTE .STK-MED ONE Nitroglycerin 0.4 mg 05/23/19 20:10 05/23/19 20:13 Nitrostat 0.4 Mg (Ed) SL 05/23/19 20:11 0.4 mg STAT ONE Administration Nitroglycerin Confirm 05/23/19 20:12 Nitrostat 0.4 Mg (Ed) Administered 05/23/19 20:13 Dose 0.4 mg SL .STK-MED ONE Ondansetron HCl 4 mg 05/23/19 20:08 05/23/19 20:13 Zofran 4 Mg/2 Ml Vial IV 05/23/19 20:09 4 mg STAT ONE Administration Ondansetron HCl Confirm 05/23/19 20:12 Zofran 4 Mg/2 Ml Vial Administered 05/23/19 20:13 Dose 4 mg .ROUTE .STK-MED ONE Tizanidine HCl 8 mg 05/23/19 20:11 05/23/19 20:30 Zanaflex 4 Mg PO 05/23/19 20:12 8 mg STAT STA Administration Lab/Rad Data: Laboratory Result Diagrams 05/23/19 20:37 05/23/19 20:37 Laboratory Results 05/23/19 05/23/19 05/23/19 Range/Units 23:15 23:06 20:58 WBC (4.0-10.5) K/mm3 RBC (4.1-5.4) M/mm3 Hgb (12.0-16.0) gm/dl Hct (35-47) % MCV (78-100) fl MCH (26-32) pg MCHC (32-36) g/dl RDW (11.5-14.0) % Plt Count (150-450) K/mm3 MPV (6-9.5) fl Gran % (36.0-66.0) % Eos # (Auto) (0-0.5) Absolute Lymphs (auto) (1.0-4.6) Absolute Monos (auto) (0.0-1.3) Lymphocytes % (24.0-44.0) % Monocytes % (0.0-12.0) % Eosinophils % (0.00-5.0) % Basophils % (0.0-0.4) % Absolute Granulocytes (1.4-6.9) Basophils # (0-0.4) D-Dimer (215-500) ng/mL Sodium (137-145) mmol/L Potassium (3.5-5.1) mmol/L Chloride (98-107) mmol/L Carbon Dioxide (22-30) mmol/L Anion Gap (5-15) MEQ/L BUN (7-17) mg/dL Creatinine (0.52-1.04) mg/dL Estimated GFR ML/MIN Glucose (74-106) mg/dL Lactic Acid 0.7 (0.4-2.0) Calcium (8.4-10.2) mg/dL Total Bilirubin (0.2-1.3) mg/dL AST (14-36) U/L ALT (0-35) U/L Alkaline Phosphatase (38-126) U/L Creatine Kinase 124 (30-135) U/L Troponin I < 0.012 (0.000-0.034) ng/mL Serum Total Protein (6.3-8.2) g/dL Albumin (3.5-5.0) g/dL Amylase (30-110) U/L Lipase (23-300) U/L Urine Color YELLOW (YELLOW) Urine Appearance CLEAR (CLEAR) Urine pH 7.0 (5-6) Ur Specific [place] 1.006 (1.005-1.025) Urine Protein NEGATIVE (Negative) Urine Ketones NEGATIVE (NEGATIVE) Urine Blood NEGATIVE (0-5) Arian/ul Urine Nitrite NEGATIVE (NEGATIVE) Urine Bilirubin NEGATIVE (NEGATIVE) Urine Urobilinogen NEGATIVE (0-1) mg/dL Ur Leukocyte Esterase TRACE (NEGATIVE) Urine WBC (Auto) 3-5 (0-5) /HPF Urine RBC (Auto) 0-2 (0-2) /HPF U Epithel Cells (Auto) RARE (FEW) /HPF Urine Bacteria (Auto) NONE (NEGATIVE) /HPF Urine Mucus (Auto) SLIGHT (NEGATIVE) /HPF Urine Culture Reflexed NO (NO) Urine Glucose NEGATIVE (NEGATIVE) mg/dL 05/23/19 05/23/19 05/23/19 Range/Units 20:37 20:37 20:37 WBC (4.0-10.5) K/mm3 RBC (4.1-5.4) M/mm3 Hgb (12.0-16.0) gm/dl Hct (35-47) % MCV (78-100) fl MCH (26-32) pg MCHC (32-36) g/dl RDW (11.5-14.0) % Plt Count (150-450) K/mm3 MPV (6-9.5) fl Gran % (36.0-66.0) % Eos # (Auto) (0-0.5) Absolute Lymphs (auto) (1.0-4.6) Absolute Monos (auto) (0.0-1.3) Lymphocytes % (24.0-44.0) % Monocytes % (0.0-12.0) % Eosinophils % (0.00-5.0) % Basophils % (0.0-0.4) % Absolute Granulocytes (1.4-6.9) Basophils # (0-0.4) D-Dimer 366 (215-500) ng/mL Sodium 141 (137-145) mmol/L Potassium 4.2 (3.5-5.1) mmol/L Chloride 108 H (98-107) mmol/L Carbon Dioxide 22 (22-30) mmol/L Anion Gap 15.1 H (5-15) MEQ/L BUN 16 (7-17) mg/dL Creatinine 0.75 (0.52-1.04) mg/dL Estimated GFR > 60.0 ML/MIN Glucose 104 (74-106) mg/dL Lactic Acid (0.4-2.0) Calcium 10.0 (8.4-10.2) mg/dL Total Bilirubin 0.80 (0.2-1.3) mg/dL AST 30 (14-36) U/L ALT 17 (0-35) U/L Alkaline Phosphatase 88 (38-126) U/L Creatine Kinase (30-135) U/L Troponin I 0.021 (0.000-0.034) ng/mL Serum Total Protein 8.6 H (6.3-8.2) g/dL Albumin 4.8 (3.5-5.0) g/dL Amylase 95 (30-110) U/L Lipase 96 (23-300) U/L Urine Color (YELLOW) Urine Appearance (CLEAR) Urine pH (5-6) Ur Specific [place] (1.005-1.025) Urine Protein (Negative) Urine Ketones (NEGATIVE) Urine Blood (0-5) Arian/ul Urine Nitrite (NEGATIVE) Urine Bilirubin (NEGATIVE) Urine Urobilinogen (0-1) mg/dL Ur Leukocyte Esterase (NEGATIVE) Urine WBC (Auto) (0-5) /HPF Urine RBC (Auto) (0-2) /HPF U Epithel Cells (Auto) (FEW) /HPF Urine Bacteria (Auto) (NEGATIVE) /HPF Urine Mucus (Auto) (NEGATIVE) /HPF Urine Culture Reflexed (NO) Urine Glucose (NEGATIVE) mg/dL 05/23/19 05/23/19 Range/Units 20:37 20:30 WBC 16.5 H (4.0-10.5) K/mm3 RBC 4.89 (4.1-5.4) M/mm3 Hgb 14.7 (12.0-16.0) gm/dl Hct 42.9 (35-47) % MCV 87.7 (78-100) fl MCH 30.1 (26-32) pg MCHC 34.3 (32-36) g/dl RDW 13.5 (11.5-14.0) % Plt Count 361 (150-450) K/mm3 MPV 10.7 H (6-9.5) fl Gran % 37.5 (36.0-66.0) % Eos # (Auto) 0.20 (0-0.5) Absolute Lymphs (auto) 8.60 H (1.0-4.6) Absolute Monos (auto) 1.47 H (0.0-1.3) Lymphocytes % 52.1 H (24.0-44.0) % Monocytes % 8.9 (0.0-12.0) % Eosinophils % 1.2 (0.00-5.0) % Basophils % 0.3 (0.0-0.4) % Absolute Granulocytes 6.20 (1.4-6.9) Basophils # 0.05 (0-0.4) D-Dimer (215-500) ng/mL Sodium (137-145) mmol/L Potassium (3.5-5.1) mmol/L Chloride (98-107) mmol/L Carbon Dioxide (22-30) mmol/L Anion Gap (5-15) MEQ/L BUN (7-17) mg/dL Creatinine (0.52-1.04) mg/dL Estimated GFR ML/MIN Glucose (74-106) mg/dL Lactic Acid 3.2 H (0.4-2.0) Calcium (8.4-10.2) mg/dL Total Bilirubin (0.2-1.3) mg/dL AST (14-36) U/L ALT (0-35) U/L Alkaline Phosphatase (38-126) U/L Creatine Kinase (30-135) U/L Troponin I (0.000-0.034) ng/mL Serum Total Protein (6.3-8.2) g/dL Albumin (3.5-5.0) g/dL Amylase (30-110) U/L Lipase (23-300) U/L Urine Color (YELLOW) Urine Appearance (CLEAR) Urine pH (5-6) Ur Specific [place] (1.005-1.025) Urine Protein (Negative) Urine Ketones (NEGATIVE) Urine Blood (0-5) Arian/ul Urine Nitrite (NEGATIVE) Urine Bilirubin (NEGATIVE) Urine Urobilinogen (0-1) mg/dL Ur Leukocyte Esterase (NEGATIVE) Urine WBC (Auto) (0-5) /HPF Urine RBC (Auto) (0-2) /HPF U Epithel Cells (Auto) (FEW) /HPF Urine Bacteria (Auto) (NEGATIVE) /HPF Urine Mucus (Auto) (NEGATIVE) /HPF Urine Culture Reflexed (NO) Urine Glucose (NEGATIVE) mg/dL - Progress Progress: improved, re-examined Air Movement: good Progress Note: 05/24/19 00:[address] Santiago at [facility] hosp and pt /family and all agree best to transfer pt to rule out cardiac and for neuro eval of spasms; Blood Culture(s) Obtained: No Antibiotics given: No Discussed with Dr.: Other (Dr Santiago at [facility]) Will see patient in: hospital (full admit) Counseled pt/family regarding: lab results, diagnosis, need for follow-up, rad results - Departure Departure Disposition: Transfer Clinical Impression: Chest pain, diffuse muscle spasm rule out neuro/meta Condition: Good Critical Care Time: No Referrals: LUKE VARGHESE, [employer] [Primary Care Provider] -
[2019-05-23] MEDS ORDERED: Nitrostat 0.4 MG (ED) SL ONE ×2 (20:10→20:12)
[2019-05-23] MEDS ORDERED: Zanaflex 4 MG PO STA (20:11)
[2019-05-23] MEDS ORDERED: Zofran 4 MG/2 ML VIAL ONE (20:12)
[2019-05-23] MEDS ORDERED: Ativan 1 MG PO ONE (20:12)
[2019-05-23] MEDS ORDERED: Sodium Chloride 0.9% 1000 ML 1,000 ML ONE ×2 (20:12→22:23)
[2019-05-23] MEDS ORDERED: Ativan 1 MG ONE (20:22)
[2019-05-23 20:39] LABS: BASOPHIL % 0.3 % (0.0-0.4); Basophil (Absolute #) 0.05 (0-0.4); Eosinophil % 1.2 % (0.00-5.0); Granulocytes % 37.5 % (36.0-66.0); Hematocrit 42.9 % (35-47); Hemoglobin 14.7 gm/dl (12.0-16.0); Lymphocytes % 52.1 % (24.0-44.0); Mean Cell Volume 87.7 fl (78-100); Mean Corpuscular Hemoglobin 30.1 pg (26-32); Mean Corpuscular Hgb Concent. 34.3 g/dl (32-36); Mean Platelet Volume 10.7 fl (6-9.5); Monocyte (Absolute #) 1.47 (0.0-1.3); Monocytes % 8.9 % (0.0-12.0); Platelet Count 361 K/mm3 (150-450); Red Blood Count 4.89 M/mm3 (4.1-5.4); Red Cell Distribution Width 13.5 % (11.5-14.0); White Blood Count 16.5 K/mm3 (4.0-10.5)
[2019-05-23 20:41] LABS: Lactic Acid 3.2 (0.4-2.0)
[2019-05-23 20:48] LABS: ALBUMIN 4.8 g/dL (3.5-5.0); ALKALINE PHOSPHATASE 88 U/L (38-126); AMYLASE 95 U/L (30-110); ANION GAP 15.1 MEQ/L (5-15); BLOOD UREA NITROGEN 16 mg/dL (7-17); CHLORIDE 108 mmol/L (98-107); Carbon Dioxide 22 mmol/L (22-30); Creatinine 1 0.75 mg/dL (0.52-1.04); Glucose 104 mg/dL (74-106); LIPASE 96 U/L (23-300); Potassium 4.2 mmol/L (3.5-5.1); SGOT/AST 30 U/L (14-36); SGPT/ALT 17 U/L (0-35); SODIUM 141 mmol/L (137-145); Total Protein 8.6 g/dL (6.3-8.2)
[2019-05-23 21:26] LABS: Appearance CLEAR (CLEAR); Bilirubin NEGATIVE (NEGATIVE); Blood NEGATIVE Ery/ul (0-5); Epithelial Cells RARE /HPF (FEW); Glucose NEGATIVE (NEGATIVE); Ketones NEGATIVE (NEGATIVE); Leukocyte Esterase TRACE (NEGATIVE); Mucus SLIGHT /HPF (NEGATIVE); Nitrite NEGATIVE (NEGATIVE); Protein,Urine Dip NEGATIVE (Negative); RBC 0-2 /HPF (0-2); Specific Gravity 1.006 (1.005-1.025); Urobilinogen NEGATIVE mg/dL (0-1)
[2019-05-23] MEDS ORDERED: ROCEPHIN 1 Gm-D5w 50 ml Bag** 1 G/50 ML IVPB IV ONE ×2 (22:22→22:23)
[2019-05-23 23:58] LABS: CK-Creatinine Phosphokinase 124 U/L (30-135)
[2019-05-24 00:02] LABS: TROPONIN < 0.012 ng/mL (0.000-0.034)
[2019-05-24 01:20] VITALS: O2SAT 96
[2019-05-24 01:29] VITALS: BP 119/72; PULSE 69
[2019-05-24] MEDS ORDERED: Sodium Chloride 0.9% 1000 ML 1,000 ML ONE (01:30)
[2019-05-24] MEDS ORDERED: Sodium Chloride 0.9% 1000 ML 1,000 ML IV SCH (01:30)
[2019-05-24 03:31] LABS: Slide Review 1 YES
--- NOTE | 2019-05-24 08:52 | XRAY ---
Indication: Left-sided pain with breathing. Comparison: September 11, 2014. Portable chest again demonstrates normal heart and lungs with incidental tiny calcified granulomas. Bony thorax intact again with mild degenerative changes. No new/acute findings.
== END 2019-05-24 02:16 | disposition short-term general hospital (02) ==
LOC: ED 19:54
DX: R07.9 Chest pain, unspecified (principal); M62.838 Other muscle spasm
CPT/HCPCS: 36000; 36415; 71045; 80053; 81001; 82150; 82550; 83605; 83690; 84484; 85025; 85379; 93005; 96360; 96361; 96365; 96374; 99285; J0696; J2405; A9270-GY

== ENCOUNTER 2021-02-05 20:45 | Emergency (ER) | payer OTHER ==
--- NOTE | 2021-02-05 20:47 | ERPHSYRPT ---
- History of Present Illness Time Seen by Provider: 02/05/21 20:47 Source: patient Exam Limitations: no limitations Physician History: This is a 50-year-old white female with history of chronic back pain and gastroesophageal reflux disease who was jumping on one trampoline and attempting to jump from one traveling to another approximate 430 this afternoon. She twisted her left ankle. She was able to walk on it but as the evening went on she is having more pain in the lateral aspect of her left ankle. Patient is here for x-rays. Method of Injury: twisted Occurred: this afternoon Quality: aching Severity of Pain-Max: moderate Severity of Pain-Current: moderate Modifying Factors: Improves With: movement Associated Symptoms: other (Patient can bear weight but it hurts to do so) Allergies/Adverse Reactions: Latex, Natural Rubber Allergy (Intermediate, Verified 02/05/21 21:03) Hives sulfamethoxazole [From Bactrim] Allergy (Mild, Verified 02/05/21 21:03) Hives trimethoprim [From Bactrim] Allergy (Mild, Verified 02/05/21 21:03) Hives codeine Allergy (Verified 02/05/21 21:03) tramadol Allergy (Verified 02/05/21 21:03) Hives morphine Adverse Reaction (Verified 02/05/21 21:03) Itching Home Medications: Baclofen 10 mg [Lioresal 10 mg] 10 mg PO TID 04/07/19 [History] Omeprazole 40 mg PO BID 04/07/19 [History] Amitriptyline HCl 10 mg [Elavil 10 mg] 10 mg PO 02/05/21 [History] Diclofenac Sodium 75 mg PO BID 02/05/21 [History] lisinopriL [Lisinopril] 5 mg PO DAILY 02/05/21 [History] Hx Tetanus, Diphtheria Vaccination/Date Given: Yes Hx Influenza Vaccination/Date Given: Yes Hx Pneumococcal Vaccination/Date Given: No Travel Risk - International Travel Have you traveled outside of the country in past 3 weeks: No - Coronavirus Screening Are you exhibiting any of the following symptoms?: No Close contact with a COVID-19 positive Pt in past 14-21 Days: No - Review of Systems Constitutional: No Symptoms Eyes: No Symptoms Ears, Nose, & Throat: No Symptoms Respiratory: No Symptoms Cardiac: No Symptoms Abdominal/Gastrointestinal: No Symptoms Genitourinary Symptoms: No Symptoms Musculoskeletal: Injury (Left foot and ankle) Neurological: No Symptoms Psychological: No Symptoms Endocrine: No Symptoms Hematologic/Lymphatic: No Symptoms Immunological/Allergic: No Symptoms All Other Systems: Reviewed and Negative - Past Medical History Pertinent Past Medical History: Yes Neurological History: No Pertinent History ENT History: No Pertinent History Cardiac History: No Pertinent History Respiratory History: Asthma, Bronchitis Endocrine Medical History: No Pertinent History Musculoskeletal History: Arthritis GI Medical History: Colitis History: No Pertinent History Psycho-Social History: No Pertinent History Female Reproductive Disorders: No Pertinent History Other Medical History: HYSTERECTOMY 2004. HX OF EPIDURAL LOW BACK (? PER PT S1) 09/2015 HAD RELIEF FOR 10 MONTHS. APPROVE. HAS HAD THERAPY IN THE PAST INCLU DING GENERAL CONDITIONING, CORE STRENGTHENING, AND ELECTRICAL STIMULATION. HAS NOT CONTINUED EXERCISES. - Past Surgical History Past Surgical History: Yes Neuro Surgical History: No Pertinent History Cardiac: No Pertinent History Respiratory: No Pertinent History Gastrointestinal: Cholecystectomy Genitourinary: No Pertinent History Musculoskeletal: No Pertinent History Female Surgical History: Hysterectomy, Tubal Ligation - Social History Smoking Status: Current every day smoker How long have you smoked: 15 Exposure to second hand smoke: Yes Drug Use: marijuana Patient Lives Alone: No - Nursing Vital Signs Nursing Vital Signs: Initial Vital Signs Temperature 98.1 F 02/05/21 21:07 Pulse Rate 82 02/05/21 21:07 Respiratory Rate 22 02/05/21 21:07 Blood Pressure 136/97 02/05/21 21:07 O2 Sat by Pulse Oximetry 99 02/05/21 21:07 Pain Scale Pain Intensity 8 - Physical Exam General Appearance: no apparent distress, alert, anxiety Eyes, Ears, Nose, Throat Exam: normal ENT inspection, moist mucous membranes Neck Exam: normal inspection, non-tender, supple, full range of motion Cardiovascular/Respiratory Exam: chest non-tender, no respiratory distress Gastrointestinal/Abdominal Exam: non-tender Back Exam: normal inspection, normal range of motion, No CVA tenderness, No vertebral tenderness Hips Exam: bilateral: non-tender, normal inspection, normal range of motion, no evidence of injury Legs Exam: bilateral leg: non-tender, normal inspection, normal range of motion, no evidence of injury Knees Exam: bilateral knee: non-tender, normal inspection, normal range of motion, no evidence of injury Ankle Exam: right ankle: non-tender, left ankle: bone tenderness, soft tissue tenderness, bilateral ankle: normal inspection, normal range of motion, no evidence of injury Foot Exam: right foot: non-tender, left foot: bone tenderness, soft tissue tenderness, bilateral foot: normal inspection, normal range of motion, no evidence of injury Neuro/Tendon Exam: normal sensation, normal motor functions, normal tendon functions, responds to pain Mental Status Exam: alert, oriented x 3, cooperative Skin Exam: normal color, warm, dry SpO2 Interpretation: normal O2 Delivery: Room Air - Course Nursing assessment & vital signs reviewed: Yes Ordered Tests: Active Orders 24 hr Category Date Time Status Olegario [facility] Care 02/05/21 21:58 Ordered Cold Application STAT Care 02/05/21 21:07 Active ANKLE (3 VIEWS) Stat Exams 02/05/21 21:09 Taken FOOT (MINIMUM 3 VIEWS) Stat Exams 02/05/21 21:08 Taken - Progress Progress: improved, pain not gone completely Progress Note: 02/05/21 22:01 X-ray of the left ankle reveals no evidence of any acute fracture or dislocation. X-ray of the left foot reveals no evidence of any acute fracture or dislocation - Departure Departure Disposition: Home Clinical Impression: Mild sprain of left ankle Condition: Stable Critical Care Time: No Referrals: FADI TAYLOR NP [Primary Care Provider] - Additional Instructions: Ice pack to tender area 3 times a day for the next 48 hours. Tylenol and ibuprofen for pain control. Follow-up in the [facility] podiatry clinic if symptoms persist or worsen. Forms: Work/School Release Form
[2021-02-05 21:33] VITALS: O2SAT 99
[2021-02-05] MEDS ORDERED: NORCO 5/325 MG PO ONE (21:57)
[2021-02-05] MEDS ORDERED: NORCO 5/325 MG ONE (22:08)
[2021-02-05 22:17] VITALS: BP 127/94; PULSE 88
--- NOTE | 2021-02-06 08:38 | XRAY ---
Indication: Pain following injury. Comparison: June 23, 2020. 3 nonweightbearing views left foot demonstrates stable tiny heel spurs. No new/acute bony, articular, or soft tissue abnormalities.
--- NOTE | 2021-02-06 08:38 | XRAY ---
Indication: Pain following injury. Comparison: None 3 view left ankle demonstrates tiny heel spurs. No other bony, articular, or soft tissue abnormalities.
== END 2021-02-05 22:22 | disposition home or self-care (01) ==
LOC: ED 20:45
DX: S93.402A Sprain of unspecified ligament of left ankle, initial encounter (principal); X50.1XXA Overexertion from prolonged static or awkward postures, initial encounter; Y93.44 Activity, trampolining; Y92.9 Unspecified place or not applicable; M54.5 Low back pain; Z79.899 Other long term (current) drug therapy
CPT/HCPCS: 73610; 73630; 99284; A9270-GY

== ENCOUNTER 2021-05-29 02:44 | Emergency (ER) | payer OTHER ==
--- NOTE | 2021-05-29 03:20 | ERPHSYRPT ---
- History of Present Illness Time Seen by Provider: 05/29/21 03:16 Source: patient Exam Limitations: no limitations Patient Subjective Stated Complaint: pt states she has been having some difficulty breathing and thinks she may be having an anxiety attack or possibly an asthma attack. denies chest pain. Triage Nursing Assessment: pt alert and oreinted, answers questions approp. pt ambualtory with steady gait noted. respirations nonlabored with lungs cta bilat. skin pink warm and dry. pupils equal and reactive. pt calm and cooperative at this time. 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 No fever , but some cough. lungs are clear on exam. no edema no swelling. no hx cad , some hx hptn. Timing/Duration: today Severity of Dyspnea-Max: moderate Severity of Dyspnea-Current: moderate Possible Cause: no prior episodes Associated Symptoms: cough Allergies/Adverse Reactions: Latex, Natural Rubber Allergy (Intermediate, Verified 05/29/21 03:08) Hives tramadol Allergy (Intermediate, Verified 05/29/21 03:14) Hives codeine Allergy (Mild, Verified 05/29/21 03:14) sulfamethoxazole [From Bactrim] Allergy (Mild, Verified 05/29/21 03:08) Hives trimethoprim [From Bactrim] Allergy (Mild, Verified 05/29/21 03:08) Hives morphine Adverse Reaction (Mild, Verified 05/29/21 03:14) Itching Home Medications: Baclofen 10 mg [Lioresal 10 mg] 10 mg PO TID 04/07/19 [History] lisinopriL [Lisinopril] 5 mg PO DAILY 02/05/21 [History] Hx Tetanus, Diphtheria Vaccination/Date Given: Yes Hx Influenza Vaccination/Date Given: Yes Hx Pneumococcal Vaccination/Date Given: No Immunizations Up to Date: Yes Travel Risk - International Travel Have you traveled outside of the country in past 3 weeks: No - Coronavirus Screening Are you exhibiting any of the following symptoms?: No Close contact with a COVID-19 positive Pt in past 14-21 Days: No - Vaccine Status Have you recieved a Covid-19 vaccination: No - Review of Systems Constitutional: No Fever, No Chills Eyes: No Symptoms Ears, Nose, & Throat: No Symptoms Respiratory: Cough, Dyspnea Cardiac: No Chest Pain, No Edema, No Syncope Abdominal/Gastrointestinal: Vomiting, No Abdominal Pain, No Nausea, No Diarrhea Genitourinary Symptoms: No Dysuria Musculoskeletal: No Back Pain, No Neck Pain Skin: No Rash Neurological: No Dizziness, No Focal Weakness, No Sensory Changes Psychological: No Symptoms Endocrine: No Symptoms All Other Systems: Reviewed and Negative - Past Medical History Pertinent Past Medical History: Yes Neurological History: No Pertinent History ENT History: No Pertinent History Cardiac History: No Pertinent History Respiratory History: Asthma, Bronchitis Endocrine Medical History: No Pertinent History Musculoskeletal History: Arthritis, Fibromyalgia GI Medical History: Colitis History: No Pertinent History Psycho-Social History: No Pertinent History Female Reproductive Disorders: No Pertinent History Other Medical History: HYSTERECTOMY 2004. HX OF EPIDURAL LOW BACK (? PER PT S1) 09/2015 HAD RELIEF FOR 10 MONTHS. APPROVE. HAS HAD THERAPY IN THE PAST INCLUDING GENERAL CONDITIONING, CORE STRENGTHENING, AND ELECTRICAL STIMULATION. HAS NOT CONTINUED EXERCISES. - Past Surgical History Past Surgical History: Yes Neuro Surgical History: No Pertinent History Cardiac: No Pertinent History Respiratory: No Pertinent History Gastrointestinal: Cholecystectomy Genitourinary: No Pertinent History Musculoskeletal: No Pertinent History Female Surgical History: Hysterectomy, Tubal Ligation - Social History Smoking Status: Former smoker How long have you smoked: 15 Exposure to second hand smoke: Yes Drug Use: marijuana Patient Lives Alone: No - Female History Hx Last Menstrual Period: hyster Hx Now: No - Nursing Vital Signs Nursing Vital Signs: Initial Vital Signs Pulse Rate 80 05/29/21 02:55 Respiratory Rate 16 05/29/21 02:55 Blood Pressure 127/88 05/29/21 02:55 O2 Sat by Pulse Oximetry 100 05/29/21 02:55 Pain Scale Pain Intensity 3 - Physical Exam General Appearance: no apparent distress, alert Eye Exam: PERRL/EOMI Ears, Nose, Throat Exam: hearing grossly normal, normal ENT inspection, normal pharynx Neck Exam: normal inspection, supple Respiratory Exam: normal breath sounds, lungs clear Cardiovascular/Chest Exam: normal heart sounds, regular rate/rhythm Abdominal/Gastrointestinal Exam: soft, No tenderness, No distention, No mass Rectal Exam: deferred Extremity Exam: non-tender, normal range of motion, normal inspection, no calf tenderness, no pedal edema Peripheral Pulses Exam: carotid (R): 2+, carotid (L): 2+, femoral (R): 2+, femo ral (L): 2+, dorsalis-pedis (R): 2+, dorsalis-pedis (L): 2+ Neurologic Exam: alert, oriented x 3, cooperative, metal cleaner II-XII nml as tested, sensation nml, No motor deficits Skin Exam: normal color, warm, No dry SpO2 Interpretation: normal SpO2: 100 O2 Delivery: Room Air - Course Nursing assessment & vital signs reviewed: Yes EKG Interpreted by Me: Sinus Rhythm, NORMAL AXIS, NORMAL INTERVALS, NORMAL QRS, Non-specific ST Changes - Radiology Exams Chest X-ray Interpretation: Reviewed by me, No Infiltrates, Other (reticular interstitial pattern) Ordered Tests: Active Orders 24 hr Category Date Time Status EKG-ER Only STAT Care 05/29/21 03:26 Active CHEST 1 VIEW (PORTABLE) Stat Exams 05/29/21 03:21 Taken CBC W DIFF Stat Lab 05/29/21 03:43 Completed CMP Stat Lab 05/29/21 03:43 Completed D-DIMER QUANTITATIVE Stat Lab 05/29/21 03:43 Completed Lactic Acid Stat Lab 05/29/21 03:35 Completed NT PRO BNP Stat Lab 05/29/21 03:43 Completed TROPONIN Q3H Lab 05/29/21 03:43 Completed TROPONIN Q3H Lab 05/29/21 06:30 Ordered TROPONIN Q3H Lab 05/29/21 09:30 Ordered TROPONIN Q3H Lab 05/29/21 12:30 Ordered TROPONIN Q3H Lab 05/29/21 15:30 Ordered Medication Summary Discontinued Medications Generic Name Dose Route Start Last Admin Trade Name Freq PRN Reason Stop Dose Admin Lorazepam 1 mg 05/29/21 03:22 05/29/21 03:30 Ativan 1 Mg PO 05/29/21 03:23 1 mg STAT ONE Administration Lorazepam Confirm 05/29/21 03:29 Ativan 1 Mg Administered 05/29/21 03:30 Dose 1 mg .ROUTE .STK-MED ONE Lab/Rad Data: Laboratory Result Diagrams 05/29/21 03:43 05/29/21 03:43 Laboratory Results 05/29/21 05/29/21 05/29/21 Range/Units 03:43 03:43 03:43 WBC (4.0-10.5) K/mm3 RBC (4.1-5.4) M/mm3 Hgb (12.0-16.0) gm/dl Hct (35-47) % MCV (78-100) fl MCH (26-32) pg MCHC (32-36) g/dl RDW (11.5-14.0) % Plt Count (150-450) K/mm3 MPV (7.5-11.0) fl Gran % (36.0-66.0) % Eos # (Auto) (0-0.5) Absolute Lymphs (auto) (1.0-4.6) Absolute Monos (auto) (0.0-1.3) Lymphocytes % (24.0-44.0) % Monocytes % (0.0-12.0) % Eosinophils % (0.00-5.0) % Basophils % (0.0-0.4) % Absolute Granulocytes (1.4-6.9) Basophils # (0-0.4) D-Dimer 269 (215-500) ng/mL Sodium 140 (137-145) mmol/L Potassium 3.9 (3.5-5.1) mmol/L Chloride 107 (98-107) mmol/L Carbon Dioxide 21 L (22-30) mmol/L Anion Gap 16.4 H (5-15) MEQ/L BUN 11 (7-17) mg/dL Creatinine 0.65 (0.52-1.04) mg/dL Estimated GFR > 60.0 ML/MIN Glucose 123 H (74-106) mg/dL Lactic Acid (0.4-2.0) Calcium 10.2 (8.4-10.2) mg/dL Total Bilirubin 0.90 (0.2-1.3) mg/dL AST 27 (14-36) U/L ALT 14 (0-35) U/L Alkaline Phosphatase 96 (38-126) U/L Troponin I < 0.012 (0.000-0.034) ng/mL NT-Pro-B Natriuret Pep 33.4 (0-450) pg/mL Serum Total Protein 8.2 (6.3-8.2) g/dL Albumin 4.8 (3.5-5.0) g/dL 05/29/21 05/29/21 Range/Units 03:43 03:35 WBC 12.3 H (4.0-10.5) K/mm3 RBC 4.72 (4.1-5.4) M/mm3 Hgb 13.6 (12.0-16.0) gm/dl Hct 40.8 (35-47) % MCV 86.4 (78-100) fl MCH 28.8 (26-32) pg MCHC 33.3 (32-36) g/dl RDW 13.7 (11.5-14.0) % Plt Count 362 (150-450) K/mm3 MPV 10.2 (7.5-11.0) fl Gran % 67.3 H (36.0-66.0) % Eos # (Auto) 0.16 (0-0.5) Absolute Lymphs (auto) 3.09 (1.0-4.6) Absolute Monos (auto) 0.74 (0.0-1.3) Lymphocytes % 25.2 (24.0-44.0) % Monocytes % 6.0 (0.0-12.0) % Eosinophils % 1.3 (0.00-5.0) % Basophils % 0.2 (0.0-0.4) % Absolute Granulocytes 8.24 H (1.4-6.9) Basophils # 0.03 (0-0.4) D-Dimer (215-500) ng/mL Sodium (137-145) mmol/L Potassium (3.5-5.1) mmol/L Chloride (98-107) mmol/L Carbon Dioxide (22-30) mmol/L Anion Gap (5-15) MEQ/L BUN (7-17) mg/dL Creatinine (0.52-1.04) mg/dL Estimated GFR ML/MIN Glucose (74-106) mg/dL Lactic Acid 0.9 (0.4-2.0) Calcium (8.4-10.2) mg/dL Total Bilirubin (0.2-1.3) mg/dL AST (14-36) U/L ALT (0-35) U/L Alkaline Phosphatase (38-126) U/L Troponin I (0.000-0.034) ng/mL NT-Pro-B Natriuret Pep (0-450) pg/mL Serum Total Protein (6.3-8.2) g/dL Albumin (3.5-5.0) g/dL - Progress Progress: improved, re-examined Air Movement: good Progress Note: 05/29/21 04:33 Symptoms have resolved. Discussed limitations of workup performed and that there still could be undetected pathology cardiac , vascular , pulmonary or other evolving with pt and she prefers DC with outpt f/u rather than further w/u in ER or admission in house. SHe has the capacity to make this choice. her Cardiac score is 3 or less + Hptn, + fam Hx, normal EKG and pain not typical for CAD, trop negative. Percs out also and has neg D Dimer. Blood Culture(s) Obtained: No Antibiotics given: No Counseled pt/family regarding: lab results, diagnosis, need for follow-up, rad results - Departure Departure Disposition: Home Clinical Impression: transient SO breath of unknown cause Condition: Good Critical Care Time: No Referrals: FADI TAYLOR FACILITY TECHNICIAN [Primary Care Provider] - Instructions: Cough, Adult (DC), Shortness of Breath (Dyspnea) (DC) Additional Instructions: Follow up with your for further cardiac and pulmonary evaluations and return meantime if symptoms recur or any concerns.
[2021-05-29] MEDS ORDERED: Ativan 1 MG PO ONE (03:22)
[2021-05-29] MEDS ORDERED: Ativan 1 MG ONE (03:29)
[2021-05-29 04:13] LABS: Absolute Neutrophil Ct (ANC) 8.24 (1.4-6.9); BASOPHIL % 0.2 % (0.0-0.4); Basophil (Absolute #) 0.03 (0-0.4); Eosinophil % 1.3 % (0.00-5.0); Eosinophil (Absolute #) 0.16 (0-0.5); Hematocrit 40.8 % (35-47); Hemoglobin 13.6 gm/dl (12.0-16.0); Lymphocyte (Absolute #) 3.09 (1.0-4.6); Lymphocytes % 25.2 % (24.0-44.0); Mean Cell Volume 86.4 fl (78-100); Mean Corpuscular Hemoglobin 28.8 pg (26-32); Mean Corpuscular Hgb Concent. 33.3 g/dl (32-36); Mean Platelet Volume 10.2 fl (7.5-11.0); Monocyte (Absolute #) 0.74 (0.0-1.3); Neutrophil % 67.3 % (36.0-66.0); Platelet Count 362 K/mm3 (150-450); Red Blood Count 4.72 M/mm3 (4.1-5.4); Red Cell Distribution Width 13.7 % (11.5-14.0); White Blood Count 12.3 K/mm3 (4.0-10.5)
[2021-05-29 04:19] LABS: ALBUMIN 4.8 g/dL (3.5-5.0); ALKALINE PHOSPHATASE 96 U/L (38-126); ANION GAP 16.4 MEQ/L (5-15); BLOOD UREA NITROGEN 11 mg/dL (7-17); CHLORIDE 107 mmol/L (98-107); Calcium 10.2 mg/dL (8.4-10.2); Carbon Dioxide 21 mmol/L (22-30); Creatinine 1 0.65 mg/dL (0.52-1.04); EST GLOMERULAR FILTRATION RATE > 60.0 ML/MIN; Glucose 123 mg/dL (74-106); NT PRO BNP 33.4 pg/mL (0-450); Potassium 3.9 mmol/L (3.5-5.1); SGOT/AST 27 U/L (14-36); SGPT/ALT 14 U/L (0-35); SODIUM 140 mmol/L (137-145); Total Protein 8.2 g/dL (6.3-8.2)
[2021-05-29 04:51] VITALS: BP 106/75; PULSE 71; O2SAT 99
--- NOTE | 2021-05-29 07:40 | XRAY ---
Indication: Short of breath. Comparison: May 23, 2019. Portable chest again demonstrates normal heart and lungs with incidental mediastinal/pulmonary calcified granulomas. Bony thorax intact again with mild degenerative changes. No new/acute findings.
== END 2021-05-29 05:04 | disposition home or self-care (01) ==
LOC: ED 02:44
DX: R06.02 Shortness of breath (principal)
CPT/HCPCS: 36000; 36415; 71045; 80053; 83605; 83880; 84484; 85025; 85379; 93005; 99284; A9270-GY